=== PATIENT | female | born 1990 | race Caucasian/White ===

== ENCOUNTER 2016-09-22 01:50 | Emergency (ER) | payer BC ==
[~2016-09-22] VITALS: Ht 162.6 cm; Wt 64.5 kg
[~2016-09-22 01:50] MED LIST: BCPILLS PO; DRV100 PO
[2016-09-22 01:54] VITALS: TEMP 36.6; Ht 162.6 cm; Wt 64.5 kg
[2016-09-22] MEDS ORDERED: ONDANSETRON INJ 2 MG/ML 2 ML VIAL IV STA (02:05)
[2016-09-22] MEDS ORDERED: SODIUM CHLORIDE 0.9% 1000ML 1,000 ML IV STA (02:05)
[2016-09-22] MEDS ORDERED: MoRPHine SULFATE 10 MG/ML CARP/VIAL IV STA (02:05)
[2016-09-22 02:35] LABS: URINE BILIRUBIN NEG (NEG); URINE COLOR YELLOW; URINE NITRITE NEG (NEG); URINE SPECIFIC GRAVITY 1.026 (1.000-1.030); UROBILINOGEN NEG (NEG); ZZUR CULT IF INDIC CLEAN CATCH NO
[2016-09-22 02:36] LABS: MANUAL MICROSCOPIC REQUIRED? NO; REVIEW REQ? NO
[2016-09-22 02:44] LABS: HEMATOCRIT 39.1 % (37-47); MEAN CELL VOLUME 89.9 fL (80-100); MEAN CORPUSCULAR HEMOGLOBIN 30.6 pg (25-34); MEAN PLATELET VOLUME 11.3 fL (7.4-10.4); PLATELET COUNT 257 K/uL (130-400); RED BLOOD COUNT 4.35 M/uL (4.2-5.4); WHITE BLOOD COUNT 7.87 K/uL (4.8-10.8)
[2016-09-22 02:56] LABS: BUN/CREATININE RATIO 14.8 (10-20); CALCIUM 8.7 mg/dl (8.5-10.1); CREATININE 0.77 mg/dl (0.60-1.20); POTASSIUM 3.6 mmol/L (3.5-5.1)
[2016-09-22] MEDS ORDERED: KETOROLAC TROMETHAMINE 30 MG/ML VIAL IV STA (03:18)
--- NOTE | 2016-09-22 03:30 | EMERGENCY ROOM VISIT NOTE ---
History First contact with patient: 01:56 Chief Complaint: PELVIC PAIN Stated Complaint: PELVIC PAIN History of Present Illness The patient is a 26 year old female who presents to the Emergency Room with complaints of severe right pelvic pain. The patient states that she had a sudden onset of pain in her right groin approximately 45 minutes ago. She took 2 Advil without relief. She rates her discomfort a 10/10. She states that the pain has been worsening over the past one hour. Her last menstrual period was a few weeks ago. She does not take control pills. She does report a history of ovarian cysts. The patient denies any abnormal vaginal bleeding or discharge. She denies nausea/vomiting. She denies any urinary symptoms. Review of Systems A complete 10 point review of systems was reviewed with the patient with pertinent positives and negatives as per history of present illness. All else were negative. Social History Smoking Status: Never Smoker Current/Historical Medications Scheduled Multivitamin (Multivitamin), 1 TAB PO DAILY Scheduled PRN Hydrocodone/Acetaminophen 5MG/325MG ([place] 5MG/325MG), 1 TABLET PO Q4H PRN for Pain Physical Exam Vital Signs Date Time Temp Pulse Resp B/P (MAP) Pulse Ox O2 Delivery O2 Flow Rate FiO2 09/22/16 03:16 67 18 126/81 99 Room Air 09/22/16 01:54 36.6 115 20 119/76 95 Room Air Physical Exam VITALS: Vitals are noted on the nurse's note and reviewed by myself. Vital signs stable. GENERAL: This is a 26-year-old female, very uncomfortable appearing, well- developed well-nourished. HEART: Regular rate and rhythm without murmurs gallops or rubs. LUNGS: Clear to auscultation bilaterally without wheezes, rales or rhonchi. ABDOMEN: Positive bowel sounds x 4. Soft, nondistended. There is moderate tenderness to palpation in the right lower quadrant. No guarding or rebound tenderness. NEURO: Patient was alert and oriented to person place and time. Medical Decision & Procedures ER Provider Diagnostic Interpretation: US PELVIC/ENDOVAG: Assuming negative test. Endometrium is 1.2 cm thickness. Junctional zone is within normal limits. Mild fluid in the cervix. Mild free pelvic fluid. Left ovary demonstrates normal small follicles and flow. Hypoechoic structure noted measuring 8 mm length which is nonvascular and may be a small hemorrhagic cyst or rupturing follicle. The right ovary measures 5.2 x 5.6 x 3.8 cm and demonstrates a cyst heterogeneous mass measuring 4.4 x 3.5 cm which is nonvascular and may also represent a complex or hemorrhagic cyst. Differential considerations include endometrioma. There is vascular flow in the surrounding right ovarian tissue. However, given size of lesion, patient is at increased risk for torsion. There is a small amount of free fluid is seen adjacent to the ovary. Radiologist: Romaine Mojica MD Laboratory Results 09/22/16 02:20 Red Blood Count 4.35, Mean Corpuscular Volume 89.9, Mean Corpuscular Hemoglobin 30.6, Mean Corpuscular Hemoglobin Concent 34.0, Mean Platelet Volume 11.3 09/22/16 02:20 Test 09/22/16 02:15 09/22/16 02:20 Urine Color YELLOW Urine Appearance ERROR (CLEAR) Urine pH 5.0 (4.5-7.5) Urine Specific [place] 1.026 (1.000-1.030) Urine Protein NEG (NEG) Urine Glucose (UA) NEG (NEG) Urine Ketones TRACE (NEG) Urine Occult Blood NEG (NEG) Urine Nitrite NEG (NEG) Urine Bilirubin NEG (NEG) Urine Urobilinogen NEG (NEG) Urine Leukocyte Esterase NEG (NEG) Urine Test NEG (NEG) White Blood Count 7.87 K/uL (4.8-10.8) Red Blood Count 4.35 M/uL (4.2-5.4) Hemoglobin 13.3 g/dL (12.0-16.0) Hematocrit 39.1 % (37-47) Mean Corpuscular Volume 89.9 fL (80-100) Mean Corpuscular Hemoglobin 30.6 pg (25-34) Mean Corpuscular Hemoglobin Concent 34.0 g/dl (32-36) Platelet Count 257 K/uL (130-400) Mean Platelet Volume 11.3 fL (7.4-10.4) RDW Standard Deviation 43.0 fL (36.4-46.3) RDW Coefficient of Variation 13.0 % (11.5-14.5) Neutrophils % (Manual) 30.1 % Lymphocytes % (Manual) 38.9 % Variant Lymphocytes % (manual) 17.7 % Monocytes % (Manual) 7.1 % Eosinophils % (Manual) 5.3 % Basophils % (Manual) 0.9 % Neutrophils # (Manual) 2.37 K/uL (1.4-6.5) Total Absolute Neutrophils 2.37 K/uL (1.4-6.5) Lymphocytes # (Manual) 3.06 K/uL (1.2-3.4) Absolute Variant Lymphocytes 1.39 K/uL Total Absolute Lymphocytes 4.45 K/uL (1.2-3.4) Monocytes # (Manual) 0.56 K/uL (0.11-0.59) Eosinophils # (Manual) 0.42 K/uL (0-0.5) Basophils # (Manual) 0.07 K/uL (0-0.2) Anion Gap 7.0 mmol/L (3-11) Est Creatinine Clear Calc Drug Dose 94.8 ml/min Estimated GFR () 122.6 Estimated GFR (Non- 105.8 BUN/Creatinine Ratio 14.8 (10-20) Calcium Level 8.7 mg/dl (8.5-10.1) Medications Administered Medications (Trade) Dose Ordered Sig/Jes Route Start Time Stop Time Status Last Admin Dose Admin Sodium Chloride 1,000 ml @ 999 mls/hr Q1H1M STAT IV 09/22/16 02:05 09/22/16 03:05 DC 09/22/16 02:16 999 MLS/HR Morphine Sulfate (MoRPHine SULFATE INJ) 6 mg NOW STAT IV 09/22/16 02:05 09/22/16 02:07 DC 09/22/16 02:17 5 MG Ondansetron HCl (Zofran Inj) 4 mg NOW STAT IV 09/22/16 02:05 09/22/16 02:07 DC 09/22/16 02:16 4 MG Ketorolac Tromethamine (Toradol Inj) 30 mg NOW STAT IV 09/22/16 03:18 09/22/16 03:19 DC 09/22/16 03:22 30 MG ED Course The patient was evaluated as above. Labs were drawn and IV access was obtained. Patient was medicated with 6 mg morphine IV and 4 mg Zofran IV. She was hydrated with 1 L normal saline solution Pelvic ultrasound was performed and read by radiology as above. Patient was having increasing pain, but states she did not tolerate the morphine well. She was given 30 mg Toradol IV. Patient was reevaluated and was feeling much better. Repeat abdominal exam showed minimal tenderness. Case was discussed with Dr. Herrera at [facility]. He recommended follow- up in the office next week. Discharge instructions were reviewed with the patient. The patient verbalized understanding of my assessment and treatment plan and was discharged home in good condition. Medical Decision Differential diagnosis includes ovarian cyst, ovarian torsion, UTI, pelvic inflammatory disease, appendicitis, colitis, among others. The patient is a 26-year-old female who presents today complaining of a sudden onset of right lower quadrant pain. Labs revealed no leukocytosis, anemia or concerning electrolyte abnormalities. Urinalysis was not suggestive of infection. Urine was negative. Pelvic ultrasound showed a large right ovarian cyst/mass and the radiologist did comment on increased risk for torsion. The patient felt much better after receiving pain medication and I do not feel that she is experiencing torsion now. There was blood flow on the ultrasound. There was some free fluid in the pelvis and may represent a recently ruptured cyst. Case was discussed with on-call [facility], who felt the patient could follow-up in the office. Conservative measures were discussed with the patient and she was encouraged to return here if she has worsening pain , vomiting or any other new/concerning symptoms. She was given a short course of [place] to be taken as needed for more severe pain. Based on the patient's presentation and work up, I feel the patient is stable for outpatient treatment. The patient was educated to return to the emergency department for any worsening of their current condition or new/concerning symptoms. She will follow up with [facility]. [place] Drug Monitoring Program Search Results: patient reviewed within database, no issues identified Medication Reconcilliation Current Medication List: was personally reviewed by pr Blood Pressure Screening Patient's blood pressure: Normal blood pressure Impression Primary Impression: Ovarian cyst Departure Information Dispostion Home / Self-Care Condition GOOD Prescriptions Hydrocodone/Acetaminophen 5MG/325MG ([place] 5MG/325MG) Tab 1 TABLET PO Q4H Y for Pain, #10 TAB For Initial Treatment Prov: Ana María Horvath .DAVID 09/22/16 Referrals No Doctor, Assigned (PCP) Saleem Herrera MD Patient Instructions My [facility] Additional Instructions You have been prescribed [place] to be used for pain control. Take 1-2 tablets every 4-6 hours as needed for pain. This is a narcotic medication. You cannot drive or consume alcohol while on this medicine. This medicine should only be used for pain that cannot be controlled with [id number] pain medicines. For pain control, you can use the following [id number] medicines (if >12 yo): - Regular strength (325mg/tab) Tylenol (acetaminophen) 2 tabs every 4-6 hours as needed. Do not exceed 12 tablets in a 24 hour period. Avoid taking more than 4 grams (4000 mg) of Tylenol per day. This includes any other sources of acetaminophen you may take on a regular basis. - Regular strength (200 mg/tab) Advil (ibuprofen) 3-4 tabs every 6 hours as needed. Do not exceed a dose of 3200 mg per day. Call [facility] to schedule a follow-up appointment sometime next week. Return to the emergency department with significantly worsening pain, vomiting, lightheadedness, passing out, or any other new/concerning symptoms. Problem Qualifiers Primary Impression: Ovarian cyst Laterality: right Qualified Codes: N83.201 - Unspecified ovarian cyst, right side
[2016-09-22 04:07] LABS: BASO ABS # 0.07 K/uL (0-0.2); BASOPHIL % 0.9 %; COMPLETE YES; EOSINOPHIL % 5.3 %; LYMPH ABS # 3.06 K/uL (1.2-3.4); LYMPHOCYTE % 38.9 %; NEUTROPHILS % 30.1 %; VARIANT LYM ABS # 1.39 K/uL; VARIANT LYMPHOCYTE % 17.7 %
[2016-09-22] MEDS ORDERED: MULT-506 PO (04:35)
[2016-09-22] MEDS ORDERED: HYDR-5688 PO (05:01)
[2016-09-22 05:11] VITALS: BP 112/62; PULSE 55; O2SAT 100
--- NOTE | 2016-09-22 07:12 | DIAGNOSTIC IMAGING REPORT ---
ULTRASOUND OF THE PELVIS CLINICAL HISTORY: Right pelvic pain. COMPARISON STUDY: Pelvic CT dated 09/16/2008. TECHNIQUE: Real-time, grayscale, and color flow sonography of the pelvis is performed both transabdominally and endovaginally. Images are reviewed in the transverse and longitudinal planes. FINDINGS: Uterus: The uterus is normal in size and echotexture, measuring 7.3 x 3.4 x 4.7 cm. Trace fluid is noted within the endocervical canal. Endometrium: The endometrium is normal in appearance, and the endometrial stripe is top normal in thickness measuring up to 1.1 cm. Ovaries: The ovaries are normal in size and morphology. The right ovary measures 5.6 x 3.8 x 5.2 cm and the left ovary measures 2.7 x 2.2 x 2.2 cm. There are numerous bilateral ovarian follicles. A complex/hyperechoic cyst is noted in the right ovary and measures up to 4.4 cm. Normal Doppler waveforms are shown within both ovaries. Pelvis: There is a small volume of free fluid in the cul-de-sac. No concerning adnexal lesion is seen. IMPRESSION: 1. There is a 4.4 cm complex cyst in the right ovary. This likely represents a hemorrhagic cyst. An endometrioma is considered less likely but is the top differential consideration. Precautionary follow-up ultrasound in 2-3 menstrual cycles is recommended to document resolution. 2. There is a small volume of nonspecific free fluid in the cul-de-sac, likely within physiologic limits. 3. Normal Doppler flow is present within both ovaries. There is no sonographic evidence of ovarian torsion at the time of examination. Electronically signed by: Ronald Sung M.D. 09/22/2016 7:11 AM Dictated Date/Time: 09/22/2016 7:08 AM
== END 2016-09-22 05:13 | disposition home or self-care (01) ==
LOC: C.EDB 01:51 → C.EDA 05:13
DX: N83.201 Unspecified ovarian cyst, right side (principal)

== ENCOUNTER → 2016-12-04 | Outpatient (CLI) | payer BC ==
[~2016-12-04] MED LIST changes: -BCPILLS PO; -DRV100 PO; +HYDR-5688 PO; +MULT-506 PO
== END | disposition home or self-care (01) ==
LOC: C.PAPS 09:33
PROVIDERS: ATTEND Physician Assistant
DX: Z01.419 Encounter for gynecological examination (general) (routine) without abnormal findings (principal)

== ENCOUNTER 2023-07-16 15:38 | Observation (INO) ==
--- NOTE | 2023-07-16 15:45 | Emergency Department Note ---
Impression & Plan Chest pain during , Cholecystitis, Transaminitis ED Provider Note NAME: AMADO BOLIVAR AGE: 32 SEX: F : 1990 ARRIVES VIA: Walk-In INFORMANT: Patient, ED PROVIDER(S): oMrris Yi MD CHIEF COMPLAINT: Chest and abdominal pain, nausea MEDICAL DECISION MAKING: Patient presented due to concern for upper abdominal and chest pain and the patient is significantly uncomfortable and was found not to be in labor so additional advanced her workup was initiated in the emergency department. The patient already did have an IV established and blood work was obtained which was pending. Additional blood work was added along with a CT of the chest angiography and CT of the abdomen and pelvis. Patient and the patient's were concerned about radiation was for the child. I did discuss that there are theoretical risks but may be less so in the third trimester. I did tell them that I was concerned about the patient and that the patient is in significant discomfort and pain which would be atypical for dyspepsia. They are comfortable with proceeding forward. The patient was ordered IV Pepcid but declined any nausea medication. The patient did have a CT of the chest performed which was unremarkable. CT of the abdomen pelvis did show concern for gallbladder wall thickening and inflammatory change. I did speak with the reading radiologist Dr. Mcgee who stated the patient could have a short segment dissection of the SMA. Given the patient did have symptoms in the upper abdomen with radiation toward the back this could be referred pain from that. I did discuss this at length with the patient the patient's again about potential needing additional imaging study CT with contrast in order to evaluate this vessel. In order to evaluate this this was the recommendation of radiology. After further discussion with the patient's and the patient's they are comfortable with proceeding. Patient also did have a gallbladder ultrasound ordered in addition to limited OB ultrasound to evaluate the placenta in order to rule out abruption. Patient did have 1 episode of vomiting after her initial CAT scan but declined any additional nausea medication but did receive IV Protonix. The patient's blood work showed a white count of 11 with a normal hemoglobin and platelet count. The patient's kidney function was unremarkable. The patient does have mild transaminitis with an AST and ALT of 66 and 113 with an alk phos of 125. Urinalysis was negative. Right upper quadrant ultrasound showed equivocal cholecystitis. I did speak with on-call general surgery Harjinder Clifton PA-C did evaluate the patient and in consultation with Dr. Peguero. They stated that no something that they would perform surgery but recommended conservative management until that would consider possible induction and elective cholecystectomy unless things worsened. I did discuss this with the on-call MACHINE SPECIALIST physician Dr. Nair and the patient will be admitted under observation and with MACHINE SPECIALIST under surgical consultation. Gallbladder ultrasound does show the cholelithiasis with mild gallbladder wall thickening gallbladder distention and trace pericholecystic fluid the angiography of the abdomen was described as the subtle linear density within the proximal SMA is likely artifactual. There is still cholelithiasis with mild gallbladder distention and pericholecystic infiltration. Ultrasound will be limited does not show any evidence of placental abruption. Discussion w/ other healthcare providers: Dr. Nobles with MACHINE SPECIALIST Dr. Mcgee with radiology Harjinder Clifton PA-C and Dr. Peguero with general surgery Prior /Outside records reviewed: None Differential diagnosis: Cardiac ischemia, aortic dissection, pulmonary embolism, pneumothorax, pneumonia, pericarditis, myocarditis, GERD, cholecystitis, pancreatitis, musculoskeletal, as well as other pathologies were considered. Diagnostics, as interpreted by me: ECG: Normal sinus rhythm, rate of 68, normal intervals, normal axis T wave version lead III noncontiguous leads no ST elevations. Cardiac monitoring: An order was placed for continuous cardiac monitoring. The monitor shows a rate of 75 with sinus rhythm. Patient was placed on pulse oximetry Medical decision rules: Heart score, Wells score Imaging studies: I informally interpreted the patient's CT angiography of the chest which does not show obvious pneumonia or pneumothorax with formal report to follow. HPI: Patient presents due to concern for upper abdominal and chest pain that began shortly after eating. Patient had presented here and there was concern that the patient may be in labor so the patient did go to L&D. The patient was assessed by L&D and sent back down to the emergency department for further evaluation. Patient reportedly has had persistent pain since the time that it began. It is constant located in the upper abdomen and radiating into the upper chest. Patient is 37 weeks and is a G1, P0. The patient denies any vaginal bleeding or discharge no leakage of fluid. I did speak with the on-call MACHINE SPECIALIST Dr. Pappas to evaluate the patient states that the patient is not in active labor with good heart rate and movement. Patient denies any leg swelling or calf pain. 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 The patient denies any history of DVT or PE. No recent surgeries procedures or hospitalizations. Patient denies any cough or fever. Patient states that she has had similar episodes in the past but they have resolved with this 1 has been constant ever since it began. Patient states that the pain is burning in nature and does radiate to her back. PAST MEDICAL HISTORY: See Below PAST SURGICAL HISTORY: See Below SOCIAL HISTORY: See Below HOME MEDICATIONS: See Below ALLERGIES: See Below VITALS: See Below PHYSICAL EXAMINATION: GENERAL: Moderate distress and uncomfortable in appearance. Writhing in the bed, primarily responds with single words or shaking of the head or nodding as opposed to speaking in sentences. EYE EXAM: Normal conjunctiva. PERRL, no anisocoria and EOM's grossly intact w/o pain. OROPHARYNX: Moist mucus membranes, grossly normal dentition. NECK: Trachea midline, no stridor. Supple, no nuchal rigidity, no adenopathy, non-tender. No signs of meningismus. FROM of the neck with good chin to chest and neck extension. LUNGS: Clear to auscultation. Normal chest wall mechanics. HEART: NSR, no MRG. ABDOMEN: Upper abdominal pain diffuse, no significant lower abdominal pain, gravid abdomen, no rebound or guarding. BACK: No CVA TTP. SKIN: No rashes and no bruising. UPPER EXTREMITIES: Upper extremities are grossly normal. LOWER EXTREMITIES: Grossly normal, no edema. Negative Homans' sign bilaterally NEURO EXAM: A&O x3, cranial nerves II-XII grossly intact, normal speech, moves all 4 extremities. 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 Tinnitus, bilateral Menorrhagia Dysmenorrhea Suspected 2019 novel coronavirus infection (Acute) Medical History Mild tricuspid regurgitation Varicella vaccination Family history of ovarian cyst History of coagulation defect Factor 5 Leiden mutation, heterozygous Surgical History S/P wisdom tooth extraction Family History Grandmother (Maternal) Factor 5 Leiden mutation, heterozygous Breast cancer Grandmother (Paternal) Clotting disorder Father Hypertension Liver disease Dyslipidemia Aunt Factor 5 Leiden mutation, heterozygous maternal Denies family history of Ovarian cancer Colorectal cancer Social History Smoking Status: Never smoker Do You Dip or Chew Tobacco: No; Hx Alcohol Use: No Hx Substance Use: No Preferred Language: German Communication Ability: Effective Data Collection Associate Required: No Beliefs That Will Affect Care: None marital status: marital status details: Dereje Mercedes(34) [phone] Current Living Situation: Spouse Current Living Situation Comment: lives with spouse, cat-spouse changing litter current occupational status: employed 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 Feels Safe at Home: Yes Allergies Allergies Allergy/AdvReac Type Severity Reaction Status Date / Time COVID-19 vacc, bv (Orig, Allergy Unknown faint Verified 07/16/23 16:18 Omicron BA.4/5) (Pfizer) [From Pfizer COVID Bival(12y up)(PF)] miconazole [From Monistat 7] AdvReac Severe internal Verified 07/16/23 16:18 vag pain, swelling Home Meds Home Medications Medication Instructions Recorded Confirmed vits,calcium 21-iron fum 1 tab PO UD 07/16/23 07/16/23 14 mg iron-folic acid 400 mcg tablet ( Complete) Results & Data (ED) Vital Signs Vital Signs - 24 hr 07/16/23 19:44 07/16/23 20:01 07/16/23 20:29 Pulse Rate 66 76 77 Pulse Rate from SpO2 Sensor 67 77 Respiratory Rate 20 17 Blood Pressure 134/72 117/74 Blood Pressure Mean 92 88 Pulse Oximetry 99 98 07/16/23 20:30 07/16/23 21:30 07/16/23 22:00 Pulse Rate 66 63 65 Pulse Rate from SpO2 Sensor 65 63 64 Respiratory Rate 20 14 14 Blood Pressure 126/73 122/73 129/74 Blood Pressure Mean 90 89 92 Pulse Oximetry 99 96 97 07/16/23 22:30 07/16/23 23:00 Pulse Rate 62 67 Pulse Rate from SpO2 Sensor 62 68 Respiratory Rate 18 14 Blood Pressure 120/70 132/74 Blood Pressure Mean 86 93 Pulse Oximetry 97 99 Home Medications Current Medication List: was personally reviewed by me Laboratory Data Attestation: I reviewed the patient's lab results. 07/17/23 06:07 07/17/23 06:07 Administered Medications Discontinued Medications Famotidine (Pepcid 20mg Iv Push) 20 mg in 5 mls @ 2.5 mls/min IV NOW STA Stop: 07/16/23 15:52 Last Admin: 07/16/23 16:04 Dose: 2.5 mls/min Documented By: Pantoprazole Sodium 40 mg/ (Syringe) 10 mls @ 5 mls/min IV NOW ONE Stop: 07/16/23 17:07 Last Admin: 07/16/23 19:39 Dose: 5 mls/min [place]ed [place] [facility] [place]per[place] Sod/Tazobactam Sod (Zosyn) 4.5 gm in 100 mls @ 200 mls/hr IV NOW ONE Stop: 07/16/23 20:14 Last Infusion: 07/16/23 20:47 Dose: Infused [place]ed [place] [facility] [place] Admin: 07/16/23 19:58 Dose: 200 mls/hr Documented By: [facility] [place] Dextrose/Lactated Ringer's (D5w And Lactated Ringers) 1,000 mls @ 125 mls/hr IV .Q8H [facility] Stop: 08/16/23 00:44 Last Infusion: 07/17/23 12:00 Dose: Infused Documented By: Infusion: 07/17/23 08:36 Dose: 125 mls/hr Documented By: Infusion: 07/17/23 04:30 Dose: 0 mls/hr Documented By: Admin: 07/17/23 01:05 Dose: 125 mls/hr Documented By: ELICEO Piperacillin Sod/Tazobactam (Sod 4.5 gm/ Dextrose) 100 mls @ 25 mls/hr IV Q8H [facility]; Protocol Stop: 07/21/23 03:59 Last Infusion: 07/17/23 08:36 Dose: Infused Documented By: Admin: 07/17/23 04:30 Dose: 25 mls/hr Documented By: JOSE Ioversol (Optiray 320 125ml) 120 ml IV ONCE ONE Stop: 07/16/23 16:25 Last Admin: 07/16/23 16:25 Dose: 120 ml Documented By: KLEVER Ioversol (Optiray 320 125ml) 120 ml IV ONCE ONE Stop: 07/16/23 19:03 Last Admin: 07/16/23 19:06 Dose: 120 ml Documented By: NEENA Ondansetron HCl (Ondansetron Inj 2 Mg/Ml 2 Ml Vial) 4 mg IV NOW STA Stop: 07/16/23 17:06 Last Admin: 07/16/23 19:05 Dose: Not Given Documented By: MR Cardoza Multivit/Wood Casket Assembler/Iron/Folic Ac ( Vitamin 1 Tab) 1 tab PO DAILY@0800 [facility] Stop: 08/16/23 07:59 Last Admin: 07/17/23 08:07 Dose: Not Given Documented By: JAMAL Imaging Data Radiologist's Impression: Abdomen/Pelvis CT 07/16/23 15:51 CT OF THE ABDOMEN AND PELVIS WITH CONTRAST CLINICAL HISTORY: Chest pain moving to back and upper abdominal pain, 37 weeks . COMPARISON STUDY: CT of the abdomen and pelvis September 16, 2008. OB ultrasound March 19, 2023. TECHNIQUE: Following IV administration of 120 mL of Optiray, axial images of the abdomen and pelvis were obtained from the lung bases to the proximal femurs. Images were reviewed in the axial, sagittal, and coronal planes. IV contrast was administered without complication. Automated exposure control was utilized for the study. A dose lowering technique was utilized adhering to the principles of ALARA. FINDINGS: No pneumatosis, free air or portal venous gas is present. Liver, spleen, adrenal glands, kidneys and pancreas are normal. There is no biliary or pancreatic ductal dilatation. The gallbladder is mildly distended. There is mild pericholecystic stranding. A 3 mm radiodensity within the gallbladder is present. Intrauterine gestation is noted. Presentation is cephalic. Heterogeneity of the placenta is likely due to placental lakes. There is no free fluid. Caliber and wall thickness of small and large bowel are normal. The appendix is not definitively identified but there is no inflammation adjacent to the cecum/ileocecal valve. An apparent linear filling defect within the proximal superior mesenteric artery on image 98 of 377 is probably artifactual. No fluid collections are present. There is no lymphadenopathy. IMPRESSION: 1. Small gallstone within the gallbladder with mild gallbladder distention and pericholecystic stranding. The findings raise the possibility of acute cholecystitis. Right upper quadrant ultrasound could be obtained for further evaluation. 2. Apparent linear filling defect within the proximal superior mesenteric artery. This is likely artifactual however a short segment dissection cannot be excluded. If clinically indicated, a CTA of the abdomen could be obtained. 3. No bowel obstruction. No bowel wall thickening. Nonvisualization of the appendix but no inflammation adjacent to the cecum. 4. Intrauterine gestation. Cephalic presentation. Heterogeneity of the placenta, likely related to venous lakes. Placental abruption is considered less likely however if clinical suspicion, OB ultrasound is recommended. ACT 112: Negative or not required by law. Electronically signed by: Fermin Mcgee M.D. 07/16/2023 5:14 PM Chest CTA 07/16/23 15:51 CT ANGIOGRAPHY OF THE CHEST, PULMONARY EMBOLUS PROTOCOL CLINICAL HISTORY: Chest pain moving to back and upper abdominal pain, 37 weeks . COMPARISON STUDY: Chest radiograph June 20, 2019. TECHNIQUE: Following IV administration of 120 mL of Optiray, helical axial images of the chest were obtained utilizing the pulmonary embolus protocol. Maximal intensity projections and sagittal and coronal reformats were viewed on an independent 3D workstation. IV contrast was administered without complication. Automated exposure control was utilized for the study. A dose lowering technique was utilized adhering to the principles of ALARA. CT DOSE: 1650.91 mGy.cm FINDINGS: No pulmonary emboli are identified. There is no thoracic aortic dissection. Size of the heart is normal. There is no pericardial effusion. No enlarged axillary, mediastinal or hilar lymph nodes are present. There are no pulmonary nodules. No consolidation is present. There is no pneumothorax or pleural effusion. No fractures within the bony thorax are present. Abdomen and pelvis CT will be reported separately. IMPRESSION: 1. No pulmonary emboli identified. 2. No acute intrathoracic findings. ACT 112: Negative or not required by law. Electronically signed by: Fermin Mcgee M.D. 07/16/2023 4:31 PM Gallbladder Ultrasound 07/16/23 17:02 US gallbladder CLINICAL HISTORY: Abdominal pain. Evaluate for cholecystitis. COMPARISON STUDY: CT of the abdomen and pelvis performed earlier today. FINDINGS: Liver is sonographically normal. There is no biliary ductal dilatation. The pancreas is unremarkable although the tail is obscured by bowel gas. Multiple gallstones within the gallbladder are noted. Mild gallbladder distention. There is mild gallbladder wall thickening and trace pericholecystic fluid. No sonographic Aj sign was elicited. There is no right hydronephrosis. IMPRESSION: Cholelithiasis with mild gallbladder wall thickening, gallbladder distention and trace pericholecystic fluid. However, no sonographic Aj sign. The findings are equivocal for acute cholecystitis. ACT 112: Negative or not required by law. Electronically signed by: Fermin Mcgee M.D. 07/16/2023 6:53 PM Abdomen CTA 07/16/23 17:30 CT ANGIOGRAPHY OF THE ABDOMEN CLINICAL HISTORY: Abdominal pain. . Possible dissection on the venous phase CT. r/o SMA dissection COMPARISON STUDY: CT of the abdomen and pelvis performed earlier today. TECHNIQUE: Helical axial images of the abdomen and pelvis were obtained during arterial phase following intravenous injection of 120 cc of Optiray 320 IV. Sagittal and coronal reconstructions were viewed as well as maximal intensity projections on an independent 3-D workstation. Automated exposure control was utilized for the study. A dose lowering technique was utilized adhering to the principles of ALARA. FINDINGS: The caliber of the abdominal aorta is normal. Vascular opacification is somewhat suboptimal. Celiac axis is patent with no dissection. There is no definite dissection within the superior mesenteric artery. A subtle linear density within the proximal SMA is likely artifactual. The distal superior mesenteric artery is patent. The inferior mesenteric artery is patent as are the bilateral renal arteries. Arterial phase images of the liver, spleen, adrenal glands, kidneys and pancreas are unremarkable. Excreted contrast within the collecting systems from prior contrast enhanced CT is noted. There is no hydronephrosis. Intrauterine gestation is partially imaged. Enhancing foci within the placenta likely reflect placental lakes. Caliber and wall thickness of visualized small and large bowel are normal. A gallstone within the gallbladder is noted. As before, the gallbladder is mildly distended with moderate pericholecystic stranding. Visualized lung bases are unremarkable. IMPRESSION: 1. No definite SMA dissection. A subtle linear density within the proximal SMA is likely artifactual. 2. Cholelithiasis with mild gallbladder distention and pericholecystic infiltration. Acute cholecystitis cannot be excluded. 3. Partially visualized intrauterine gestation. ACT 112: Negative or not required by law. Electronically signed by: Fermin Mcgee M.D. 07/16/2023 7:24 PM Obstetrics Ultrasound 07/16/23 17:42 US OB limited CLINICAL HISTORY: Abdominal pain. r/o abruption. COMPARISON STUDY: CT of the abdomen and pelvis performed earlier today and OB ultrasound March 19, 2023. TECHNIQUE: Transabdominal sonography of the pelvis was performed. FINDINGS: Single viable intrauterine gestation is noted. heart rate is normal at 135 bpm. Presentation is cephalic. No evidence for placental abruption. Several placental lakes are incidentally noted. Please note that a dedicated anatomical survey was not performed. Femur length measures 7.23 cm which corresponds to an estimated gestational age of 37 weeks and 0 days. Biparietal diameter measures 9.18 cm which corresponds to an estimated gestational age of 37 weeks and 2 days. The right ovary was not visualized. Left ovary is unremarkable. Subjectively, the amount of amniotic fluid appears normal. IMPRESSION: 1. Single viable intrauterine gestation. 2. Normal heart rate. 3. No sonographic evidence for placental abruption. ACT 112: Negative or not required by law. Electronically signed by: Fermin Mcgee M.D. 07/16/2023 6:55 PM Discharge Plan Visit Data Chief Complaint: Chest Pain Stated Complaint: CHEST PAIN - 37 WEEKS ED Provider: Morris Yi Discharge Problem: Chest pain during , Cholecystitis, Transaminitis Patient Disposition: Admitted As Inpatient Discharge Instructions Interventions: ED Discharge Assessment Last Done: 07/17/23 00:32
[2023-07-16] MEDS: FAMOTIDINE 20MG IV PUSH 20 MG/5 ML SYR IV STA (16:04)
[2023-07-16] MEDS: OPTIRAY 320 125ml IV ONE ×2 (16:25→19:06)
--- NOTE | 2023-07-16 16:34 | CT Scan Report ---
CT ANGIOGRAPHY OF THE CHEST, PULMONARY EMBOLUS PROTOCOL CLINICAL HISTORY: Chest pain moving to back and upper abdominal pain, 37 weeks . COMPARISON STUDY: Chest radiograph June 20, 2019. TECHNIQUE: Following IV administration of 120 mL of Optiray, helical axial images of the chest were o btained utilizing the pulmonary embolus protocol. Maximal intensity projections and sagittal and cor onal reformats were viewed on an independent 3D workstation. IV contrast was administered without co mplication. Automated exposure control was utilized for the study. A dose lowering technique was ut ilized adhering to the principles of ALARA. CT DOSE: 1650.91 mGy.cm FINDINGS: No pulmonary emboli are identified. There is no thoracic aortic dissection. Size of the he art is normal. There is no pericardial effusion. No enlarged axillary, mediastinal or hilar lymph nod es are present. There are no pulmonary nodules. No consolidation is present. There is no pneumothorax or pleural effusion. No fractures within the bony thorax are present. Abdomen and pelvis CT will be reported separately. IMPRESSION: 1. No pulmonary emboli identified. 2. No acute intrathoracic findings. ACT 112: Negative or not required by law. Electronically signed by: Fermin Mcgee M.D. 07/16/2023 4:31 PM
--- NOTE | 2023-07-16 17:17 | CT Scan Report ---
CT OF THE ABDOMEN AND PELVIS WITH CONTRAST CLINICAL HISTORY: Chest pain moving to back and upper abdominal pain, 37 weeks . COMPARISON STUDY: CT of the abdomen and pelvis September 16, 2008. OB ultrasound March 19, 2023. TECHNIQUE: Following IV administration of 120 mL of Optiray, axial images of the abdomen and pelvis w ere obtained from the lung bases to the proximal femurs. Images were reviewed in the axial, sagittal, and coronal planes. IV contrast was administered without complication. Automated exposure control w as utilized for the study. A dose lowering technique was utilized adhering to the principles of ROSEMARIE Ellis. FINDINGS: No pneumatosis, free air or portal venous gas is present. Liver, spleen, adrenal glands, ki dneys and pancreas are normal. There is no biliary or pancreatic ductal dilatation. The gallbladder i s mildly distended. There is mild pericholecystic stranding. A 3 mm radiodensity within the gallbladd er is present. Intrauterine gestation is noted. Presentation is cephalic. Heterogeneity of the placen ta is likely due to placental lakes. There is no free fluid. Caliber and wall thickness of small and large bowel are normal. The appendix is not definitively identified but there is no inflammation anastasiya cent to the cecum/ileocecal valve. An apparent linear filling defect within the proximal superior mes enteric artery on image 98 of 377 is probably artifactual. No fluid collections are present. There is no lymphadenopathy. IMPRESSION: 1. Small gallstone within the gallbladder with mild gallbladder distention and pericholecystic strand ing. The findings raise the possibility of acute cholecystitis. Right upper quadrant ultrasound could be obtained for further evaluation. 2. Apparent linear filling defect within the proximal superior mesenteric artery. This is likely carli factual however a short segment dissection cannot be excluded. If clinically indicated, a CTA of the abdomen could be obtained. 3. No bowel obstruction. No bowel wall thickening. Nonvisualization of the appendix but no inflammati on adjacent to the cecum. 4. Intrauterine gestation. Cephalic presentation. Heterogeneity of the placenta, likely related to ve nous lakes. Placental abruption is considered less likely however if clinical suspicion, OB ultrasoun d is recommended. ACT 112: Negative or not required by law. Electronically signed by: Fermin Mcgee M.D. 07/16/2023 5:14 PM
--- NOTE | 2023-07-16 18:54 | Ultrasound Report ---
US gallbladder CLINICAL HISTORY: Abdominal pain. Evaluate for cholecystitis. COMPARISON STUDY: CT of the abdomen and pelvis performed earlier today. FINDINGS: Liver is sonographically normal. There is no biliary ductal dilatation. The pancreas is unr emarkable although the tail is obscured by bowel gas. Multiple gallstones within the gallbladder are noted. Mild gallbladder distention. There is mild gallbladder wall thickening and trace pericholecyst ic fluid. No sonographic Aj sign was elicited. There is no right hydronephrosis. IMPRESSION: Cholelithiasis with mild gallbladder wall thickening, gallbladder distention and trace p ericholecystic fluid. However, no sonographic Aj sign. The findings are equivocal for acute pita cystitis. ACT 112: Negative or not required by law. Electronically signed by: Fermin Mcgee M.D. 07/16/2023 6:53 PM
--- NOTE | 2023-07-16 18:57 | Ultrasound Report ---
US OB limited CLINICAL HISTORY: Abdominal pain. r/o abruption. COMPARISON STUDY: CT of the abdomen and pelvis performed earlier today and OB ultrasound March 19, 2023. TECHNIQUE: Transabdominal sonography of the pelvis was performed. FINDINGS: Single viable intrauterine gestation is noted. heart rate is normal at 135 bpm. Prese ntation is cephalic. No evidence for placental abruption. Several placental lakes are incidentally no main. Please note that a dedicated anatomical survey was not performed. Femur length measures 7. 23 cm which corresponds to an estimated gestational age of 37 weeks and 0 days. Biparietal diameter m easures 9.18 cm which corresponds to an estimated gestational age of 37 weeks and 2 days. The right o vary was not visualized. Left ovary is unremarkable. Subjectively, the amount of amniotic fluid appea rs normal. IMPRESSION: 1. Single viable intrauterine gestation. 2. Normal heart rate. 3. No sonographic evidence for placental abruption. ACT 112: Negative or not required by law. Electronically signed by: Fermin Mcgee M.D. 07/16/2023 6:55 PM
[2023-07-16] MEDS: ONDANSETRON INJ 2 MG/ML 2 ML VIAL IV STA (19:05)
--- NOTE | 2023-07-16 19:26 | CT Scan Report ---
CT ANGIOGRAPHY OF THE ABDOMEN CLINICAL HISTORY: Abdominal pain. . Possible dissection on the venous phase CT. r/o SMA diss ection COMPARISON STUDY: CT of the abdomen and pelvis performed earlier today. TECHNIQUE: Helical axial images of the abdomen and pelvis were obtained during arterial phase followi ng intravenous injection of 120 cc of Optiray 320 IV. Sagittal and coronal reconstructions were viewe d as well as maximal intensity projections on an independent 3-D workstation. Automated exposure cont rol was utilized for the study. A dose lowering technique was utilized adhering to the principles of ALARA. FINDINGS: The caliber of the abdominal aorta is normal. Vascular opacification is somewhat suboptimal . Celiac axis is patent with no dissection. There is no definite dissection within the superior mesen teric artery. A subtle linear density within the proximal SMA is likely artifactual. The distal super ior mesenteric artery is patent. The inferior mesenteric artery is patent as are the bilateral renal arteries. Arterial phase images of the liver, spleen, adrenal glands, kidneys and pancreas are unrema rkable. Excreted contrast within the collecting systems from prior contrast enhanced CT is noted. The re is no hydronephrosis. Intrauterine gestation is partially imaged. Enhancing foci within the placen ta likely reflect placental lakes. Caliber and wall thickness of visualized small and large bowel are normal. A gallstone within the gallbladder is noted. As before, the gallbladder is mildly distended with moderate pericholecystic stranding. Visualized lung bases are unremarkable. IMPRESSION: 1. No definite SMA dissection. A subtle linear density within the proximal SMA is likely artifactual. 2. Cholelithiasis with mild gallbladder distention and pericholecystic infiltration. Acute cholecysti tis cannot be excluded. 3. Partially visualized intrauterine gestation. ACT 112: Negative or not required by law. Electronically signed by: Fermin Mcgee M.D. 07/16/2023 7:24 PM
[2023-07-16] MEDS: PANTOprazole 40 MG in SYRINGE 0 ML IV ONE (19:39)
[2023-07-16] MEDS: PIPERACILLIN/TAZOBACTAM 4.5 GM/100 ML BAG IV ONE (19:58)
--- NOTE | 2023-07-16 20:08 | Surgery Consultation ---
Date of Consultation July 16, 2023 Assessment & Plan (1) Cholecystitis: I discussed with the treating emergency room physician and recommend the following from surgical perspective The patient does not have any definite evidence of cholecystitis At the present time, cholecystectomy is not advisable, as the patient is 37 weeks gestation. It would be preferable to have the patient deliver her baby and then consider pursuing cholecystectomy at a later time I discussed the case with OB and they are planning on admitting the patient for observation In the interim we will place the patient on antibioticsthe emergency room physician has initiated Zosyn As the patient does have a slight elevation of her alkaline phosphatase and transaminases I feel be prudent to repeat LFTs tomorrow to ensure that they are not rising If there is evidence of rising LFTs additional recommendations will be made on the best course of action regarding the patient's cholecystitis I did advise the patient to avoid fatty foods for the present time I would allow the patient to have clear liquids up until midnight tonight, we will make her n.p.o. after midnight in the event that her LFTs do rise in any procedural intervention would be required Additional recommendations will be made based on her clinical course as it unfolds Supervising Physician Co-Signing Physician Notes pnt d/w ELIZABETH Tate, labs and imaging reviewed, agree with above. 37 week female with epigastric pain, CT and RUQUS with cholelithiasis and possible cholecystitis. Given advanced , would treat conservatively as difficult access laparoscopically. If worsens, consider induction/delviery followed by cholecystectomy. History of Present Illness Reason for Consultation: Cholelithiasis, possible cholecystitis History of Present Illness This is a 32-year-old female who is at 37 weeks gestation who presented to the emergency department secondary to abdominal pain. The patient notes that during her she has had 1-2 episodes of epigastric pain/heartburn that usually self resolves after belching and using the restroom. Earlier today around noon the patient had a pizza for lunch and then developed similar pain to what is described above only in a much more severe nature that did not resolve in his usual fashion and because of this she presented the emergency department. She said that the pain did radiate up into her chest to some degree. She did not have any nausea or vomiting. She did not report any fevers. She denies any prior abdominal surgeries. It is noteworthy to mention that the patient does have a history of factor V Leiden deficiency. The patient notes that this was discovered because the patient's grandmother was diagnosed with with this condition, and the patient inquired about going on control pills in the past which prompted evaluation for this condition. The patient notes that she tested positive for factor V Leiden and therefore was never placed on oral contraceptive pills. She notes that she has never had any issues with blood clots. Because of the above-noted symptomatology she presented to the emergency department where labs and imaging were performed which I independent reviewed. She did have a CT scan of the abdomen pelvis that showed patient had a small gallstone in the gallbladder with mild gallbladder distention and pericholecystic stranding. There is no biliary ductal dilatation but these findings could not exclude cholecystitis. Of note, on this abdominal CT scan the patient had a possible linear filling defect in this superior mesenteric artery. A gallbladder ultrasound was performed which demonstrated gallstones w ith mild gallbladder wall thickening and gallbladder distention with trace pericholecystic fluid, again with the inability to exclude cholecystitis. A CT scan of the chest was performed and no pulmonary emboli were noted. There were no other acute intrathoracic findings. Because of the CT scan findings on the original abdominal CT scan a CT angiogram of the abdomen was performed that showed no definite superior mesenteric artery dissection and the superior mesenteric artery was noted to have a subtle linear density which was felt to be artifactual. An obstetrics ultrasound was performed that showed a single viable intrauterine gestation with normal heart rate. There is no evidence of placental abruption. It is also noteworthy to mention that prior to presenting to the emergency department the patient did present to the obstetrics [facility] as the patient was concerned that she may have been in labor due to the above-noted symptoms. She did have labs performed at this time where CBC revealed white blood cell count was slightly elevated 11.0. Her hemoglobin was normal and her hematocrit was slightly at 35.5. Platelet count was within the normal range. Chemistry profile showed sodium was 135 with a normal potassium. BUN and creatinine were 12 and 0.5. The patient's magnesium was noted to be normal. The patient's bilirubin was normal. Transaminases revealed an AST and ALT of 66 and 113 respectively. Her alkaline phosphatase had a slight elevation at 125. Due to the symptoms that the patient was experiencing was recommended that the patient go to the emergency department as described above. At the time of my interview with the patient she was resting comfortably in bed in no distress. Allergies Allergy/AdvReac Type Severity Reaction Status Date / Time COVID-19 vacc, bv (Orig, Allergy Unknown faint Verified 07/16/23 16:18 Omicron BA.4/5) (Pfizer) [From Pfizer COVID Bival(12y up)(PF)] miconazole [From Monistat 7] AdvReac Severe internal Verified 07/16/23 16:18 vag pain, swelling Home Medications Medication Instructions Recorded Confirmed Type vits,calcium 21-iron fum 1 tab PO UD 07/16/23 07/16/23 History 14 mg iron-folic acid 400 mcg tablet ( Complete) Patient History Medical History Mild tricuspid regurgitation Varicella vaccination Family history of ovarian cyst History of coagulation defect Factor 5 Leiden mutation, heterozygous Surgical History S/P wisdom tooth extraction Family History Grandmother (Maternal) Factor 5 Leiden mutation, heterozygous Breast cancer Grandmother (Paternal) Clotting disorder Father Hypertension Liver disease Dyslipidemia Aunt Factor 5 Leiden mutation, heterozygous maternal Denies family history of Ovarian cancer Colorectal cancer Social History Smoking Status: Never smoker Do You Dip or Chew Tobacco: No; Hx Alcohol Use: No Hx Substance Use: No Preferred Language: Maltese marital status: marital status details: Dereje Mercedes([phone] Current Living Situation: Spouse Current Living Situation Comment: lives with spouse, cat-spouse changing litter current occupational status: employed 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 Feels Safe at Home: Yes Review of Systems Review of Systems: All systems reviewed & are unremarkable except as noted in HPI & below Constitutional: no fever and no chills Cardiovascular: + chest pain (Radiating from abdomen) Gastrointestinal: as per Subjective / HPI Genitourinary: no dysuria Physical Exam Constitutional: WD/WN, vitals as above Eyes: + anicteric sclerae ENMT: Ears: no hearing impairment and no external ear abnormality No sublingual jaundice noted Neck: trachea midline Respiratory: normal respiratory effort, lungs clear to auscultation Cardiovascular: Rate/Rhythm: regular rate and regular rhythm Gastrointestinal (Abdomen): The patient's abdomen was examinedshe had an enlarged abdomen consistent with 37 weeks gestation. At the time of my exam the patient's abdomen was nondistended and nonrigid. Bowel sounds are present. There is no rebound tenderness or guarding. At the time of my exam the patient had minimal to no pain in the epigastric areas as well as the right upper quadrant. Musculoskeletal: No calf tenderness Skin: no rashes Neurologic: moves all extremities Psychiatric: A+Ox3, euthymic affect Results & Data Vital Signs (Past 12 Hours) Vital Signs Temp Pulse Resp BP Pulse Ox O2 Del Method 07/16/23 19:44 66 20 134/72 99 07/16/23 17:01 87 16 149/96 H 99 07/16/23 16:37 79 07/16/23 16:31 79 19 114/79 100 07/16/23 15:40 36.0 C L 80 20 135/82 99 Room Air PG Care Time/CCT Total # of Minutes Spent Total Time Spent with Patient: Total time spent is greater than 50% in coordination of care (as documented) at patient's floor/unit and/or counseling patient: Coding Level of Care Code 04656 IN/OBS CONSULT LVL 5,80M Diagnoses Cholecystitis K81.9
--- NOTE | 2023-07-16 23:42 | Obstetrical Progress Note ---
Date of Service July 16, 2023 Subjective Patient Is seen and examined She has been in since this afternoon Her work up was negative for PE, MN, normal ECG, Chest CT Normal OB US Abd US with GB stone and ? cholecystitis? She feels much better Pain is much lower, she declined all pain meds She does not need Tylenol either She denies ctxs/ abdominal pain/LOF/VB/ spotting Bbay has ivan very active Kicking on her RUQ and causing discomfort VSS afebrile Bed side US: vertex, single UIP, FHR 140's, multiple movements and breathing see, placenta anterior, appears normal AFV normal G. surgery has seen her recommended IV AB, no surgery for now, keep overnight observation and repeat labs in am, clear diet until MN then NPO Patient understands all and all questions were answered. Results & Data Vital Signs (Past 12 Hours) Vital Signs Temp Pulse Resp BP Pulse Ox O2 Del Method 07/16/23 20:30 66 20 126/73 99 07/16/23 20:29 77 07/16/23 20:01 76 17 117/74 98 07/16/23 19:44 66 20 134/72 99 07/16/23 17:01 87 16 149/96 H 99 07/16/23 16:37 79 07/16/23 16:31 79 19 114/79 100 07/16/23 15:40 36.0 C L 80 20 135/82 99 Room Air
[2023-07-16] MEDS ORDERED: ONDANSETRON INJ 2 MG/ML 2 ML VIAL IV PRN (23:49)
[2023-07-16] MEDS ORDERED: CALCIUM CARBONATE 500 MG CHEWABLE TAB PO PRN (23:49)
[2023-07-16] MEDS ORDERED: ACETAMINOPHEN 325 MG TAB PO PRN (23:49)
[2023-07-17] MEDS: D5W AND LACTATED RINGERS 1,000 ML IV SCH (01:05)
--- NOTE | 2023-07-17 01:06 | Obstetrical Progress Note ---
Date of Service July 17, 2023 Assessment & Plan Admission and Anticipated Discharge Date Admission Date: July 16, 2023 Subjective Patient is now in L&D and monitor She has no complaints, no CP/SOB/ Abdominal pain/ ctxs/ LOF/VB +FM's FHR categ I toco; mild small irregular contractions q6-7 min, patient does not feel them VE; cervix closed, %30, -3, posterior, no blood in vagina Abnormal coags, elevated PT/ INR( 1.6) , PTT, slightly lower fibrinogen ( above 150) No s/s of PE/ [place]/ SMA dissection/ nor abruption Will continue to monitor closely Repeat labs in am All questions were answered. Results & Data Vital Signs (Past 12 Hours) Vital Signs Temp Pulse Resp BP Pulse Ox O2 Del Method 07/17/23 00:41 36.5 C 18 07/17/23 00:40 62 118/59 L 07/17/23 00:00 70 16 121/74 97 07/16/23 23:59 61 20 132/76 99 07/16/23 23:00 67 14 132/74 99 07/16/23 22:30 62 18 120/70 97 07/16/23 22:00 65 14 129/74 97 07/16/23 21:30 63 14 122/73 96 07/16/23 20:30 66 20 126/73 99 07/16/23 20:29 77 07/16/23 20:01 76 17 117/74 98 07/16/23 19:44 66 20 134/72 99 07/16/23 17:01 87 16 149/96 H 99 07/16/23 16:37 79 07/16/23 16:31 79 19 114/79 100 07/16/23 15:40 36.0 C L 80 20 135/82 99 Room Air
[2023-07-17 01:19] LABS: Appearance Urine Clear (Clear); Bilirubin Urine Negative (Negative); Blood Urine Negative (Negative); Color Urine Yellow; Glucose Urine UA Negative (Negative); Ketones Urine Negative (Negative); Leukocyte Esterase Urine Negative (Negative); Nitrite Urine Negative (Negative); Protein Urine Negative (Negative); Specific Gravity Urine 1.014 (1.000-1.030); Urobilinogen Urine Negative (Negative); pH Urine 6.5 (4.5-7.5)
[2023-07-17] MEDS: PIPERACILLIN/TAZOBACTAM 4.5 GM in DEXTROSE 5% MINI-B 100 ML IV SCH (04:30)
[2023-07-17 06:32] LABS: Basophils # (auto) 0.06 K/uL (0.00-0.20); Basophils % (auto) 0.4 %; Eosinophils # (auto) 0.05 K/uL (0.00-0.50); Eosinophils % (auto) 0.4 %; Hematocrit (blood only) 35.3 % (37.0-47.0); Hemoglobin 12.4 g/dl (12.0-16.0); Immature Granulocytes # (auto) 0.16 K/uL (0.01-0.20); Immature Granulocytes % (auto) 1.2 %; Lymphocytes # (auto) 1.76 K/uL (1.20-3.40); Lymphocytes % (auto) 12.8 %; Mean Corpuscular Hemoglobin 31.6 pg (25.0-34.0); Mean Corpuscular Hgb Conc 35.1 g/dL (32.0-36.0); Mean Corpuscular Volume 90.1 fL (80.0-100.0); Monocytes # (auto) 1.26 K/uL (0.11-0.59); Monocytes % (auto) 9.1 %; Neutrophils % (auto) 76.1 %; Platelet Count 175 K/uL (130-400); RDW Coefficient of Variation 13.2 % (11.5-14.5); RDW Standard Deviation 42.5 fL (36.4-46.3); Red Blood Count 3.92 M/uL (4.20-5.40); White Blood Count 13.79 K/ul (4.8-10.8)
[2023-07-17 06:45] LABS: Albumin Globulin Ratio 1.2 (0.9-2); Albumin Level 3.1 gm/dl (3.4-5.0); BUN Creatinine Ratio 11.7 (10-20); Bilirubin,Total 0.5 mg/dl (0.2-1.0); Calcium 8.5 mg/dl (8.6-10.3); Creatinine Clr Calc Pharmacy 131.4 ml/min; Est GFR (African American) 138.8 ml/min; Est GFR (Non-African American) 119.8 ml/min; Globulin 2.5 gm/dl (2.5-4.0); Magnesium 1.8 mg/dl (1.7-2.4); Potassium 3.7 mmol/L (3.5-5.1); Total Protein 5.6 gm/dl (6.0-8.3)
--- NOTE | 2023-07-17 07:07 | Obstetrical Progress Note ---
Date of Service July 17, 2023 Assessment & Plan Admission and Anticipated Discharge Date Admission Date: July 16, 2023 Subjective Patient is sitting up and talking to her comfortably No complaints No ctxs/ LOF/VB +FM FHR had been Categ I Fourche has been registering irregular contractions but she does not feel them She feels dry, has been NPO, IV fluids have been stopped due to ZOsyn taking 4 hours to infuse VSS Afebrile H&H stable LFT's improved as below Coags pending Awaiting G surgery input Continue to monitor closely I will sign out to Dr Herrera, OB coming in Lab Results 07/17/23 07/17/23 Range/Units 01:07 06:07 WBC 13.79 H (4.8-10.8) K/ul RBC 3.92 L (4.20-5.40) M/uL Hgb 12.4 (12.0-16.0) g/dl Hct 35.3 L (37.0-47.0) % MCV 90.1 (80.0-100.0) fL MCH 31.6 (25.0-34.0) pg MCHC 35.1 (32.0-36.0) g/dL RDW Std Deviation 42.5 (36.4-46.3) fL RDW Coeff of Manny 13.2 (11.5-14.5) % Plt Count 175 (130-400) K/uL MPV 12.0 (9.4-12.4) fL Immature Gran % (Auto) 1.2 % Neut % (Auto) 76.1 % Lymph % (Auto) 12.8 % [place] % (Auto) 9.1 % Eos % (Auto) 0.4 % Baso % (Auto) 0.4 % Neut # (Auto) 10.50 H (1.40-6.50) K/uL Lymph # (Auto) 1.76 (1.20-3.40) K/uL [place] # (Auto) 1.26 H (0.11-0.59) K/uL Eos # (Auto) 0.05 (0.00-0.50) K/uL Baso # (Auto) 0.06 (0.00-0.20) K/uL Immature Gran # (Auto) 0.16 (0.01-0.20) K/uL Sodium 137 (136-145) mmol/L Potassium 3.7 (3.5-5.1) mmol/L Chloride 107 (98-107) mmol/L Carbon Dioxide 22 (21-32) mmol/L Anion Gap 8 (3-11) BUN 7 (6-23) mg/dl Creatinine 0.60 (0.6-1.2) mg/dl Est Cr Clr Drug Dosing 131.4 ml/min Est GFR ( Amer) 138.8 ml/min Est GFR (Non-Af Amer) 119.8 ml/min BUN/Creatinine Ratio 11.7 (10-20) Glucose 85 (70-99(Fasting)) mg/dl Calcium 8.5 L (8.6-10.3) mg/dl Magnesium 1.8 (1.7-2.4) mg/dl Total Bilirubin 0.5 (0.2-1.0) mg/dl AST 53 H (13-39) U/L ALT 102 H (7-52) U/L Alkaline Phosphatase 110 H (34-104) U/L Total Protein 5.6 L (6.0-8.3) gm/dl Albumin 3.1 L (3.4-5.0) gm/dl Globulin 2.5 (2.5-4.0) gm/dl Albumin/Globulin Ratio 1.2 (0.9-2) Urine Color Yellow Urine Appearance Clear (Clear) Urine pH 6.5 (4.5-7.5) Ur Specific [place] 1.014 (1.000-1.030) Urine Protein Negative (Negative) Urine Glucose (UA) Negative (Negative) Urine Ketones Negative (Negative) Urine Blood Negative (Negative) Urine Nitrite Negative (Negative) Urine Bilirubin Negative (Negative) Urine Urobilinogen Negative (Negative) Ur Leukocyte Esterase Negative (Negative) Results & Data Vital Signs (Past 12 Hours) Vital Signs Temp Pulse Resp BP Pulse Ox 07/17/23 03:54 36.9 C 69 18 101/54 L 07/17/23 00:41 36.5 C 18 07/17/23 00:40 62 118/59 L 07/17/23 00:00 70 16 121/74 97 07/16/23 23:59 61 20 132/76 99 07/16/23 23:00 67 14 132/74 99 07/16/23 22:30 62 18 120/70 97 07/16/23 22:00 65 14 129/74 97 07/16/23 21:30 63 14 122/73 96 07/16/23 20:30 66 20 126/73 99 07/16/23 20:29 77 07/16/23 20:01 76 17 117/74 98 07/16/23 19:44 66 20 134/72 99
[2023-07-17 07:20] LABS: INR 0.9 (0.9-1.1); Partial Thromboplastin Ratio 0.9; Partial Thromboplastin Time 23 Seconds (21-31); Prothrombin Time 9.9 Seconds (9.0-12.0)
[2023-07-17 07:30] LABS: Fibrinogen 387 mg/dl (184-400)
[2023-07-17] MEDS: PRENATAL VITAMIN 1 TAB PO SCH (08:07)
--- NOTE | 2023-07-17 08:17 | Surgery Progress Note ---
Date of Service July 17, 2023 Assessment & Plan (1) Cholelithiasis affecting in third trimester, antepartum: Plan: Patient is without abdominal pain at this point and feels back to her baseline Abdominal exam is completely benign no tenderness palpation in the right upper quadrant No plans for cholecystectomy at this time, will initiate diet if she tolerates this she can be discharged She should follow-up with general surgery after she delivers, to discuss elective cholecystectomy Surgery will sign off at this time, please call with any questions or concerns Admission and Anticipated Discharge Date Admission Date: July 16, 2023 Subjective Pt seen and examined. She is feeling much better without pain this morning. No fevers. No N/V. Review of Systems Review of Systems: All systems reviewed & are unremarkable except as noted in HPI & below Constitutional: no fever and no chills Cardiovascular: no chest pain Gastrointestinal: no abdominal pain, no nausea and no vomiting Genitourinary: no dysuria Physical Exam Constitutional: WD/WN, vitals as above Eyes: + anicteric sclerae ENMT: Ears: no hearing impairment and no external ear abnormality No sublingual jaundice noted Neck: trachea midline Respiratory: normal respiratory effort, lungs clear to auscultation Cardiovascular: Rate/Rhythm: regular rate and regular rhythm Gastrointestinal (Abdomen): Inspection/Auscultation: + abdomen abnormal to inspection and abdomen not distended Percussion/Palpation: abdomen soft; abdomen nontender and no guarding Negative Aj's Musculoskeletal: No calf tenderness Skin: no rashes Neurologic: moves all extremities Psychiatric: A+Ox3, euthymic affect Results & Data Vital Signs (Past 12 Hours) Vital Signs Temp Pulse Resp BP Pulse Ox 07/17/23 07:10 36.6 C 18 07/17/23 07:10 64 113/57 L 07/17/23 03:54 36.9 C 69 18 101/54 L 07/17/23 00:41 36.5 C 18 07/17/23 00:40 62 118/59 L 07/17/23 00:00 70 16 121/74 97 07/16/23 23:59 61 20 132/76 99 07/16/23 23:00 67 14 132/74 99 07/16/23 22:30 62 18 120/70 97 07/16/23 22:00 65 14 129/74 97 07/16/23 21:30 63 14 122/73 96 07/16/23 20:30 66 20 126/73 99 07/16/23 20:29 77 PG Care Time/CCT Total # of Minutes Spent Total Time Spent with Patient: Total time spent is greater than 50% in coordination of care (as documented) at patient's floor/unit and/or counseling patient: Coding Level of Care Code 17263 SUB INP/OBS CARE Diagnoses Cholelithiasis affecting in third trimester, antepartum O26.613; K80.20
--- NOTE | 2023-07-17 12:20 | Progress Note ---
Date of Service July 17, 2023 Assessment & Plan (1) Cholelithiasis affecting in third trimester, antepartum: Plan: Pt discussed with Dr Nobles at sign out this AM cholelithiasis Surg. on consult Pt feels much better this AM FHR; CAT1 Discussed induction after 39 weeks- Pt and spouse have several questions about induction and Pitocin use. Admission and Anticipated Discharge Date Admission Date: July 16, 2023 Results & Data Vital Signs (Past 12 Hours) Vital Signs Temp Pulse Resp BP 07/17/23 12:07 68 107/60 07/17/23 07:10 36.6 C 18 07/17/23 07:10 64 113/57 L 07/17/23 03:54 36.9 C 69 18 101/54 L 07/17/23 00:41 36.5 C 07/17/23 00:40 62 118/59 L
--- OUTSIDE RECORDS SUMMARY | 2023-07-18 00:33 | External Medical Summary | Summary of Care ---
Author Name Unknown Organization [facility] Address [address] [facility] [place] [address] Phone [phone] Care Team Providers Care Anesthesiologists' Assistant Name Role Phone Americo Jaimes DO Primary Care Provider [phone] Encounter Details Date Type Department Care Team (Late st Contact Info) Description 07/16/2023 Result Scan Unspecified Department <No scans attached> Allergies Active Allergy Reactions Criticality Noted Date Comments Covid-19 (Mrna) Vaccine Other (Please comment) Low 03/26/2020 Patient was dizzy and lightheaded. 2cs dose pfizer Miconazole 12/28/2021 Itching burning documented as of this encounter (statuses as of 07/17/2023) Medications Medication Sig Dispensed Refills Start Date End Date Status hydrOXYzine HCl 10 MG Oral Tablet (Atarax)Indication s:Anxiety attack Take 1 Tablet by mouth every 6 hours as needed for Anxiety. 40 Tablet 5 08/21/2022 Active Additional Information Patient not taking.Reported on 01/29/2023 [place]-3 1000 MG Oral Capsule Take by mouth. Active Nystatin-Triamcino lone 150818-9.1 UNIT/GM-% External Cream (Mycolog) Apply topically to affected area 2 times a day for 2 weeks 30 g 1 09/04/2022 Active Additional Information Patient not taking.Reported on 01/29/2023 Complete Oral Capsule Therapy Pack Take by mouth. Active Aspirin 81 MG Oral Capsule Take by mouth. Active Breast PumpIndications:35 weeks gestation of For mother. 1 Each 07/06/2023 Active Breast Pump Dispense double electric breast pump. Dx:Z39.1 1 Each 07/13/2023 Active documented as of this encounter (statuses as of 07/17/2023) Active Problems Problem Noted Date Diagnosed Date Carrier of group B Streptococcus 07/17/2023 Encounter for supervision of normal first in third trimester 07/13/2023 Situational anxiety 09/04/2022 Small fiber polyneuropathy 05/30/2022 Allergic rhinitis 05/19/2021 Mild tricuspid regurgitation 03/24/2020 Heterozygous factor V Leiden mutation 09/29/2019 Overview: Ask a doc to MFM: Recommendations: Patients with heterozygous factor V Leiden mutation and no history of VTE have 0.5% to 3.1% risk for developing a VTE during . For these patients we do not recommend anticoagulation therapy during the antepartum stage of . Prophylactic anticoagulation therapy should be considered in the stage if the patient has additional risk factors (first-degree relative with a history of thrombotic event, obesity, prolonged immobility, or delivery). Please do the following: please schedule for MFM consult (not Ultrasound) if you would like us to have this conversation with her Postinflammatory hypopigmentation 08/06/2013 Estimated Date of Delivery Comme nts Yes 08/03/2023 Based on last me nstrual period of 10/27/2022 documented as of this encounter (statuses as of 07/17/2023) Resolved Problems Problem Noted Date Diagnosed Date Resolved Date Paresthesias 06/20/2021 09/04/2022 Pityriasis rosea 07/10/2013 09/04/2022 Primary hypercoagulable state 05/17/2007 06/18/2017 ADVANCE DIRECTIVE INFORMATION 10/31/2005 09/04/2022 Overview: Pt does not have an advanced directive. Advanced directive brochure given to pt's mother. Routine child health exam 09/17/2001 documented as of this encounter (statuses as of 07/17/2023) Immunizations Name Administration Dates Next Due COVID-19 mRNA, LNP-s, No Pre serve, 2-Dose Series ([employer]) 03/26/2020,03/05/2020 HEP A - Hepatitis A (Adult > 18 yrs) 01/30/2012 HPV Vaccine, 4-Valent 04/16/2008,08/16/2007,05/21 Meningococcal Conjugate Vacc ine (Menactra/Menveo) 06/11/2007 PPD 10/15/2013,03/10/2010 Seasonal Influenza, Split, I IV3, With Preserve, Inj 11/19/2008,01/04/2006 TDAP (age 11 and older)(Adacel) 06/11/2007 documented as of this encounter Social History Tobacco Use Types Packs/Day Years Used Date Smoking Tobacco: Former Cigarettes 0 02/19/2005 - 02/19/2006 Smokeless Tobacco: Never Comments:No passive smoke ex posure Alcohol Use Standard Drinks/Week Comments Not Currently 0 (1 standard drink = 0.6 oz pur e alcohol) rare PHQ-2 Answer Date Recorded PHQ-2 Score 0 12/27/2017 Hunger Vital Sign Answer Date Recorded Within the past 12 months, y ou worried that your food would run out before you got the money to buy more. Never true 06/25/19 24 Within the past 12 months, t he food you bought just didn't last and you didn't have money to get more. Never true 06/25/2023 [place] Depression Scale Answer Date Recorded [place] Depression Scale Total 5 06/25/2023 The thought of harming myself has occurred to me . Never 06/25/2023 Estimated Date of Delivery Comme nts Yes 08/03/2023 Based on last me nstrual period of 10/27/2022 Sex and Gender Information Value Date Recorded Sex Assigned at Female 06/25/2023 8:50 AM EDT Gender Identity Female 06/25/2023 8:50 AM EDT Sexual Orientation Straight 06/25/2023 8: 50 AM EDT Job Start Date Occupation Industry Not on file Not on file Not on file documented as of this encounter Plan of Treatment Upcoming Encounters Date Type Department Care Team (Late st Contact Info) Description 07/19/2023 9:45 AM EDT Office Visit Gynecology/Obstetrics [facility] [address] [place] [id number] BackJuliana osuna CRNP [address] [place] [id number] 07/27/2023 11:15 AM EDT Office Visit Gynecology/Obstetrics [facility] [address] [place] [id number] Saleem Herrera MD [address] [place] [id number] 08/03/2023 8:30 AM EDT Office Visit Gynecology/Obstetrics [facility] [address] [place] [id number] Juliana Lauren CRNP [address] [place] [id number] Health Maintenance Due Date Last Done Comments DTaP,Tdap,and Td Vaccines (7 - Td or Tdap) 06/10/2017 06/11/2007, 09/08/2002, 09/05/1994, Additional history exists Depression Screening 07/19/2018 07/19/2017 HPV/Co-Test 08/20/2019 COVID-19 Vaccine ( season) 2022 03/26/2020, 03/05/2020 Cervical Cancer Screening 05/21/2023 Pap Smear 05/21/2023 05/20/2020, 0708/2013, 05/04/2009 Influenza Vaccine (FLU shot) (Season Ended) 2023 11/19/2008, 01/04/2006, 12/30/2004 Hepatitis B Completed 09/26/1996, 04/20, 03/10/1996 MENINGOCOCCAL (MENACTRA/MENVEO) Completed 06/11/2007 GARDASIL-HPV IMMUNIZATION SERIES Completed 04/16/2008, 08/16/2007, 06/11/2007 Pneumococcal Vaccine: Pediatrics (0 to 5 Years) and At-Risk Patients (6 to 64 Years) Aged Out No longer eligible based on patient's age to complete this topic documented as of this encounter Medical Devices Not on filedocumented as of this encounter Procedures Procedure Name Priority Date/Time Associated Diagnosis Comments OUTSIDE LAB RESULTS 07/16/2023 documented in this encounter Results * OUTSIDE LAB RESULTS (07/16/2023) 07/16/2023 No Physician Data Unknown LABORATORY documented in this encounter Care Teams Anesthesiologists' Assistant Relationship Specialty Start Date End Date Americo Jaimes DO [address] [place] [address] PCP - General Family Medicine 07/01/13 documented as of this encounter
== END 2023-07-17 12:45 | disposition home or self-care (01) ==
LOC: ED 15:38 → 4S1 15:38

== ENCOUNTER 2023-07-30 23:00 | Inpatient (IN) ==
[2023-07-31] MEDS ORDERED: CALCIUM CARBONATE 500 MG CHEWABLE TAB PO PRN (00:19)
[2023-07-31] MEDS ORDERED: LIDOCAINE 1% LOCAL 20 ML VIAL INFIL PRN (00:19)
[2023-07-31] MEDS ORDERED: SODIUM CHLORIDE 0.9% 250 ML IV PRN (00:32)
--- NOTE | 2023-07-31 00:32 | History & Physical Report ---
Date of Service July 31, 2023 Assessment & Plan (1) Spontaneous rupture of amniotic membranes: Plan: 31-year-old G1, P0 at 39 weeks and 4 days of gestation presenting with spontaneous rupture of membranes and regular contractions, Vital signs stable afebrile, heart rate category 1, Early labor with unfavorable cervix, history of cholelithiasis with elevated liver enzymes about 2 weeks ago, symptoms resolved with dietary change Patient denies any intervention, denies any pain medication nor epidural and desires ambulation intermittent monitoring, GBS positive, Plan to admit, monitor, labs, repeat liver enzymes, ambulate, pain management with IV Stadol and or epidural if patient changes her mind, Understands if contractions spaced out and no change in cervix, then we will recommend oxytocin augmentation, all questions were answered. (2) Uterine contractions at greater than 20 weeks of gestation: (3) Cholelithiasis affecting in third trimester, antepartum: (4) Factor 5 Leiden mutation, heterozygous: History of Present Illness Primary Care Provider: Americo Jaimes DO pt is a 32 yo G1, [id number] at 39 weeks and 4 days of gestation who started to leak amniotic fluids at 1915 p.m. yesterday which continued over time. She started to have contractions about half an hour later and they were irregular every 10 to 15 minutes initially and they became more closer, regular and painful for the last 1 to 2 hours. They are every 2 to 4 minutes, lasting about 50 to 60 seconds. She rates the pain 7 out of 10 but declines any pain medication nor epidural. Her has been complicated by, 1. GBS positive, 2. Episode of a acute chest pain/abdominal pain on July 15, admitted to OB service, cardiac and pulmonary workup was negative, incidental finding of cholelithiasis and elevated liver enzymes. Surgery consultation was obtained and did not recommend acute surgery since her symptoms improved. 3. Factor V Leyden mutation, no history of DVTs/PE herself neither in close family members, 4. Allergies Allergy/AdvReac Type Severity Reaction Status Date / Time COVID-19 vacc, bv (Orig, Allergy Unknown faint Verified 07/16/23 16:18 Omicron BA.4/5) (Pfizer) [From Pfizer COVID Bival(12y up)(PF)] miconazole [From Monistat 7] AdvReac Severe internal Verified 07/16/23 16:18 vag pain, swelling Home Medications Medication Instructions Recorded Confirmed Type vits,calcium 21-iron fum 1 tab PO UD 07/16/23 07/30/23 History 14 mg iron-folic acid 400 mcg tablet ( Complete) Patient History Medical History Mild tricuspid regurgitation Varicella vaccination Family history of ovarian cyst History of coagulation defect Factor 5 Leiden mutation, heterozygous Surgical History S/P wisdom tooth extraction Family History Grandmother (Maternal) Factor 5 Leiden mutation, heterozygous Breast cancer Grandmother (Paternal) Clotting disorder Father Hypertension Liver disease Dyslipidemia Aunt Factor 5 Leiden mutation, heterozygous maternal Denies family history of Ovarian cancer Colorectal cancer Social History Smoking Status: Never smoker Do You Dip or Chew Tobacco: No; Hx Alcohol Use: No Hx Substance Use: No Preferred Language: Uzbek Communication Ability: Effective Tool Storage Attendant Required: No Beliefs That Will Affect Care: None marital status: marital status details: Dereje Mercedes([phone] Current Living Situation: Spouse Current Living Situation Comment: lives with spouse, cat-spouse changing litter current occupational status: employed 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 Other Information That Helps Us Care for You: No Feels Safe at Home: Yes Assistive Devices: None SERVICE WRITER History No history of STDs, no history of chlamydia, gonorrhea, herpes Review of Systems as per Subjective / HPI Physical Exam Constitutional: WD/WN, vitals as above well developed, well nourished and + acute distress ( seems uncomfortable with contractions) Gastrointestinal (Abdomen): normal bowel sounds, soft, nontender, no hepatosplenomegaly Genitourinary: normal external appearance OB Exam Abdomen: + vertex ( confirmed with bedside ultrasound, unable to tolerate ultrasound due to p) Manual OB Exam: + cervical dilation 1 cm, + cervical effacement 20% and + station -2 OB Exam Monitor Tracing: + external uterine monitor used and + category I cervical exam is by her nurse, grossly ruptured nitrazine positive. Bedside ultrasound revealed vertex, placenta anterior, patient could not tolerate longer ultrasound exam for EFW due to pain Results & Data Vital Signs (Past 12 Hours) Vital Signs Temp Pulse Resp BP 07/30/23 23:42 62 113/71 07/30/23 23:40 36.4 C L 16 Code Status & VTE Plan VTE Prophylaxis Plan VTE Prophylaxis will be ordered: Yes
[2023-07-31] MEDS ORDERED: BUTORPHANOL TARTRATE 2 MG/ML VIAL IV PRN (00:40)
[2023-07-31] MEDS: PENICILLIN GK 6 MU in DEXTROSE 5% 250 ML IV STA (00:44)
[2023-07-31 01:10] LABS: Albumin Globulin Ratio 1.3 (0.9-2); Albumin Level 3.5 gm/dl (3.4-5.0); BUN Creatinine Ratio 10.8 (10-20); Bilirubin,Total 0.5 mg/dl (0.2-1.0); Calcium 8.9 mg/dl (8.6-10.3); Creatinine Clr Calc Pharmacy 106.8 ml/min; Est GFR (African American) 123.4 ml/min; Est GFR (Non-African American) 106.4 ml/min; Globulin 2.8 gm/dl (2.5-4.0); Potassium 3.7 mmol/L (3.5-5.1); Total Protein 6.3 gm/dl (6.0-8.3)
[2023-07-31 01:16] LABS: Hematocrit (blood only) 35.6 % (37.0-47.0); Hemoglobin 12.6 g/dl (12.0-16.0); Mean Corpuscular Hemoglobin 31.3 pg (25.0-34.0); Mean Corpuscular Hgb Conc 35.4 g/dL (32.0-36.0); Mean Corpuscular Volume 88.6 fL (80.0-100.0); Mean Platelet Volume 12.6 fL (9.4-12.4); Platelet Count 174 K/uL (130-400); RDW Coefficient of Variation 12.5 % (11.5-14.5); RDW Standard Deviation 40.6 fL (36.4-46.3); Red Blood Count 4.02 M/uL (4.20-5.40)
[2023-07-31] MEDS: PENICILLIN GK 3 MU in DEXTROSE 5% 100 ML IV PRN (04:31)
[2023-07-31] MEDS: LACTATED RINGER'S 1,000 ML IV PRN (07:15)
--- NOTE | 2023-07-31 07:25 | Anesthesiology Consultation ---
Date of Service July 31, 2023 Assessment & Plan Chart Review Chart Review: Acceptable Risk for Surgery and Patient NOT seen in Pre Admission Testing Consults Requested none ASA ASA2 Proposed Anesthesia Anesthesia Type: Labor Epidural and CSE Risk / Benefits Reviewed With: PT / POA / Parent / Guardian, Accepts Plan and Informed Consent Obtained History Height/Weight Height: 5 ft 4 in Weight: 74.3 kg Allergies Allergy/AdvReac Type Severity Reaction Status Date / Time COVID-19 vacc, bv (Orig, Allergy Unknown faint Verified 07/16/23 16:18 Omicron BA.4/5) (Pfizer) [From Pfizer COVID Bival(12y up)(PF)] miconazole [From Monistat 7] AdvReac Severe internal Verified 07/16/23 16:18 vag pain, swelling Medications Home Medications Medication Instructions Recorded Confirmed Last Taken vits,calcium 21-iron fum 1 tab PO UD 07/16/23 07/30/23 1 Day Ago 14 mg iron-folic acid 400 mcg ~07/29/23 tablet ( Complete) Active Medications Generic Name Dose Route Start Last Admin Trade Name Freq PRN Reason Stop Dose Admin Penicillin G Potassium 3 mu/ 106 mls @ 100 mls/hr 07/31/23 03:19 07/31/23 05:35 Dextrose IV 08/10/23 03:18 Infused Q4H PRN Infusion GBS(+) Until Delivery NPO Date Last Intake of Fluids: 07/31/23 Time Last Intake of Fluids: 05:30 Date Last Intake of Solids: 07/30/23 Time Last Intake of Solids: 20:00 Past Medical History Medical History Mild tricuspid regurgitation Varicella vaccination Family history of ovarian cyst History of coagulation defect Factor 5 Leiden mutation, heterozygous Exercise / Class Metabolic Activity II 4-5 Yardwork/Stairs/Walk up hill Past Family History Family History Grandmother (Maternal) Factor 5 Leiden mutation, heterozygous Breast cancer Grandmother (Paternal) Clotting disorder Father Hypertension Liver disease Dyslipidemia Aunt Factor 5 Leiden mutation, heterozygous maternal Denies family history of Ovarian cancer Colorectal cancer Past Surgical History Surgical History S/P wisdom tooth extraction Past Anesthesia History No Hx of Anesthesia Complications and No Family Hx of Anesthesia Complications History of PONV No Hx of PONV and No Hx of Motion Sickness Social History Smoking Status: Never smoker Do You Dip or Chew Tobacco: No Hx Alcohol Use: No Hx Substance Use: No Physical Exam Vital Signs Last Vital Signs Temp 36.7 C 07/31/23 06:30 Pulse 77 07/31/23 07:13 Resp 16 07/31/23 06:30 BP 121/65 07/31/23 07:13 Constitutional + obese ENMT Mouth: + small oral opening; no dentition abnormality Thyromental Distance: < 3.5 Finger Breadths Mallampati Class: II Neck normal visual inspection and trachea midline; neck extension not limited Respiratory normal respiratory effort Auscultation: lungs clear to auscultation bilaterally Cardiovascular Rate/Rhythm: regular rate and regular rhythm Heart Sounds: no murmur Vessels: no carotid bruit Musculoskeletal Spine: lumbar spine normal to inspection; normal cervical ROM Extremities: extremities normal to inspection; full ROM of extremities Neurologic moves all extremities Motor/Sensory: no sensory deficit Psychiatric Orientation: alert and oriented x 3 Testing Laboratory Results 07/31/23 00:40 07/31/23 00:40 Blood Type A Positive 07/31/23 00:40 Antibody Screen NEGATIVE 07/31/23 00:40
[2023-07-31] MEDS ORDERED: diphenhydrAMINE 50 MG/ML VIAL IV PRN (07:45)
[2023-07-31] MEDS ORDERED: NALBUPHINE HCL 5 MG in SYRINGE 0 ML IV PRN (07:45)
[2023-07-31] MEDS ORDERED: NALOXONE HCL 0.4 MG/1 ML VIAL/CARP IV PRN (07:45)
[2023-07-31] MEDS ORDERED: NALOXONE HCL 1 MG in SODIUM CHLORIDE 0.9% 1,000 ML IV PRN (07:45)
[2023-07-31] MEDS ORDERED: BUPIVACAINE 0.25% PF 30 ML VIAL EPI PRN (07:45)
[2023-07-31] MEDS ORDERED: PROMETHAZINE HCL 6.25 MG in SODIUM CHLORIDE 0.9% 50 ML IV PRN (07:45)
[2023-07-31] MEDS ORDERED: LIDOCAINE 2% MPF LOCAL 5 ML VIAL EPI PRN (07:45)
[2023-07-31] MEDS ORDERED: ONDANSETRON INJ 2 MG/ML 2 ML VIAL IV PRN (07:45)
[2023-07-31] MEDS ORDERED: ePHEDrine sulfate 50 MG/ML AMP IV PRN (07:45)
[2023-07-31] MEDS ORDERED: SODIUM CHLORIDE 0.9% PF INJ 10 ML VIAL EPI PRN (07:45)
[2023-07-31] MEDS ORDERED: ROPIVACAINE 0.5% PF 5 MG/ML 20 ML VIAL EPI PRN (07:45)
[2023-07-31] MEDS: fentANYL 2 MCG/ML BUPIVacaine 0.125%-NSS 100ML BAG EPI PRN (08:00)
[2023-07-31] MEDS: fentaNYL citrate PF 100 MCG/2 ML VIAL EPI PRN (08:11)
[2023-07-31] MEDS: LIDOCAINE 2%/EPINEPHRINE 1:200,000 20 ML PF EPI STA (08:11)
--- NOTE | 2023-07-31 08:12 | Obstetrical Progress Note ---
Date of Service July 31, 2023 Assessment & Plan Admission and Anticipated Discharge Date Admission Date: July 31, 2023 Subjective Patient decided to get epidural. Right after epidural was completed, FHR was down to 70's, maternal? Patient was placed on left lateral side and it came up to her normal baseline to 130's, VE: 8cm/ 80%/ 0, jenkins catheter was placed FHR 130's, moderate variability, no more decels Continue to monitor closely Results & Data Vital Signs (Past 12 Hours) Vital Signs Temp Pulse Resp BP Pulse Ox 07/31/23 08:06 63 100 07/31/23 08:03 64 94/76 L 07/31/23 08:01 100 07/31/23 08:01 67 07/31/23 08:01 65 88/52 L 07/31/23 07:56 69 92/55 L 100 07/31/23 07:55 118 H 92/51 L 07/31/23 07:52 67 94/45 L 07/31/23 07:51 66 98 07/31/23 07:50 77 91 07/31/23 07:46 63 100 07/31/23 07:44 76 104/63 94 07/31/23 07:41 85 95 07/31/23 07:36 83 98 07/31/23 07:31 79 98 07/31/23 07:26 90 97 07/31/23 07:13 77 121/65 07/31/23 06:30 16 07/31/23 06:30 36.7 C 07/31/23 04:33 78 129/65 07/31/23 04:31 16 07/31/23 04:31 36.8 C 07/31/23 02:18 16 07/31/23 02:18 36.6 C 16 07/30/23 23:42 62 113/71 07/30/23 23:40 36.4 C L 16
--- NOTE | 2023-07-31 09:24 | Obstetrical Progress Note ---
Date of Service July 31, 2023 Assessment & Plan (1) Spontaneous rupture of amniotic membranes: Plan: Pt reviewed with Dr Nobles and Nurse Met pt and spouse Pt resting comfortably on her left side FHR; CAT1 Ctx; 3-4min Admission and Anticipated Discharge Date Admission Date: July 31, 2023 Results & Data Vital Signs (Past 12 Hours) Vital Signs Temp Pulse Resp BP Pulse Ox 07/31/23 09:17 113 H 115/73 07/31/23 09:16 67 99 07/31/23 09:12 68 84 L 07/31/23 09:11 68 89 L 07/31/23 09:06 72 99 07/31/23 09:01 62 100 07/31/23 08:59 63 102/55 L 07/31/23 08:56 64 100 07/31/23 08:51 66 100 07/31/23 08:46 100 07/31/23 08:46 61 07/31/23 08:46 61 99/52 L 07/31/23 08:41 61 100 07/31/23 08:36 63 100 07/31/23 08:31 61 100 07/31/23 08:30 62 18 81/46 L 07/31/23 08:26 66 100 07/31/23 08:21 61 100 07/31/23 08:16 75 100 07/31/23 08:14 68 93/52 L 07/31/23 08:11 73 100 07/31/23 08:06 63 100 07/31/23 08:03 64 94/76 L 07/31/23 08:01 100 07/31/23 08:01 67 07/31/23 08:01 65 88/52 L 07/31/23 07:59 18 07/31/23 07:59 18 07/31/23 07:57 18 07/31/23 07:57 18 07/31/23 07:56 69 92/55 L 100 07/31/23 07:55 118 H 18 92/51 L 07/31/23 07:53 18 07/31/23 07:53 18 07/31/23 07:52 67 94/45 L 07/31/23 07:51 66 18 98 07/31/23 07:50 77 91 07/31/23 07:49 18 07/31/23 07:49 18 07/31/23 07:47 18 07/31/23 07:47 18 07/31/23 07:46 63 100 07/31/23 07:44 76 104/63 94 07/31/23 07:41 85 95 07/31/23 07:36 83 98 07/31/23 07:31 79 98 07/31/23 07:26 90 97 07/31/23 07:13 77 121/65 07/31/23 06:30 16 07/31/23 06:30 36.7 C 16 07/31/23 04:33 78 129/65 07/31/23 04:31 16 07/31/23 04:31 36.8 C 16 07/31/23 02:18 16 07/31/23 02:18 36.6 C 16 07/30/23 23:42 62 113/71 07/30/23 23:40 36.4 C L 16
--- OUTSIDE RECORDS SUMMARY | 2023-07-31 11:04 | External Medical Summary | Summary of Care ---
Author Name Unknown Organization [facility] Address [address] [facility] [place] [address] Phone [phone] Care Team Providers Care Hot Mill Tin Roller Name Role Phone Americo Jaimes DO Primary Care Provider +1 [phone] Reason for Visit * Reason Comments Non Stress Test Encounter Details Date Type Department Care Team (Latest Contact Info) Description 07/27/2023 10:45 AM EDT Office Visit Gynecology/Obstetric s Gabriele'roma Jones [address] [place] [address] Saleem Herrera MD [address] [place] [address] Robert Non Stress Tests Pam [address] [place] [address] Cholecystitis*; Heterozygous factor V Leiden mutation (HCC); Normal in third trimester; Carrier of group B Streptococcus Allergies Active Allergy Reactions Criticality Noted Date Comments Covid-19 (Mrna) Vaccine Other (Please comment) Low 03/26/2020 Patient was dizzy and lightheaded. 2cs dose pfizer Miconazole 12/28/2021 Itching burning documented as of this encounter (statuses as of 07/27/2023) Medications Medication Sig Dispensed Refills Start Date End Date Status hydrOXYzine HCl 10 MG Oral Tablet (Atarax)Indication s:Anxiety attack Take 1 Tablet by mouth every 6 hours as needed for Anxiety. 40 Tablet 5 08/21/2022 Active Additional Information Patient not taking.Reported on 01/29/2023 [place]-3 1000 MG Oral Capsule Take by mouth. Active Nystatin-Triamcino lone 883159-4.1 UNIT/GM-% External Cream (Mycolog) Apply topically to [...] as of this encounter (statuses as of 07/27/2023) Active Problems Problem Noted Date Diagnosed Date Carrier of group B Streptococcus 07/17/2023 Normal 07/13/2023 Situational anxiety 09/04/2022 Small fiber polyneuropathy [...] as of this encounter (statuses as of 07/27/2023) Resolved Problems Problem Noted Date Diagnosed Date Resolved Date Cholestasis during in third trimester 07/19/2023 07/19/2023 Paresthesias 06/20/2021 09/04/2022 Pityriasis rosea 07/10/2013 09/04/2022 Primary hypercoagulable state 05/17/2007 06/18/2017 ADVANCE DIRECTIVE INFORMATION 10/31/2005 09/04/2022 Overview: Pt does not have an advanced directive. Advanced directive brochure given to pt's mother. Routine child health exam 09/17/2001 documented as of this encounter (statuses as of 07/27/2023) Immunizations Name Administration Dates Next Due COVID-19 mRNA, LNP-s, No Pre serve, 2-Dose Series ([employer]) 03/26/2020,03/05/2020 HEP A - Hepatitis A (Adult > 18 yrs) 01/30/2012 HPV Vaccine, 4-Valent 04/16/2008,08/16/2007,05/21 Meningococcal Conjugate Vacc ine (Menactra/Menveo) 06/11/2007 PPD 10/15/2013,03/10/2010 Seasonal Influenza, Split, I IV3, With Preserve, Inj 11/19/2008,01/04/2006 TDAP, Age 7 and older, IM (Adacel) 06/11/2007 documented as of this encounter Social [...] money to get more. Never true 06/25/2023 [place] Depression Scale Answer Date Recorded [place] Depression Scale Total 5 06/25/2023 The thought [...] on file documented as of this encounter Last Filed Vital Signs Vital Sign Reading Time Taken Comments Blood Pressure 112/74 07/27/2023 10:40 AM EDT Pulse - - Temperature - - Respiratory Rate - - Oxygen Saturation - - Inhaled Oxygen Concentration - - Weight 74.3 kg (163 lb 12.8 oz) 024 10:40 AM EDT Height 162.6 cm (5' 4") 07/27/2023 10:4 0 AM EDT Body Mass Index 28.12 07/27/2023 10:40 AM EDT documented in this encounter Progress Notes * Saleem Herrera MD - 07/27/2023 11:39 AM EDT Pt doing well S/P cholecystitis Seen at [facility] I offered pt induction after 39 weeks in order to prevent another attack, but she tells me she has consulted with other providers and they do not find that necessary She therefore to proceed to 42 weeks NST today; ASSESSMENT assessment with Non-stress Test completed on 07/27/2023 at 39 weeks gestation for indication ofCholecystitis heart baseline: 140 bpm Variability: Moderate Decelerations: absent Accelerations: present Contractions: None NST start time: 10;46AM NST stop time: 11.12Am NST strip reviewed, interpreted, and approved by OB provider, . NST strip stored in clinic storage file documented in this encounter Nursing Notes * Annamaria Castillo LPN - 07/27/2023 12:29 PM EDT Nst, hakeem Fox sto schedule glh IOL 41 weeks and a few days. documented in this encounter Plan of Treatment Upcoming Encounters Date Type Department Care Team (Late st Contact Info) Description 08/03/2023 8:30 AM EDT Office Visit Gynecology/Obstetrics Aakash Jones [address] [place] [address] BackerJuliana CRNP [address] [place] [address] Scheduled Orders Name Type Priority Associated Diagnoses Orde r Schedule NON-STRESS TEST Procedures Routine Cholecystitis Ordered: 07/27/2023 Health Maintenance Due Date Last Done Comments DTaP,Tdap,and Td Vaccines (7 - Td or Tdap) 06/10/2017 06/11/2007, 09/08/2002, 09/05/1994, Additional history exists Depression Screening 07/19/2018 07/19/2017 HPV/Co-Test 08/20/2019 COVID-19 Vaccine ( season) 2022 03/26/2020, 03/05/2020 Cervical Cancer Screening 05/21/2023 Pap Smear 05/21/2023 05/20/2020, 07/08/2013, 05/04/2009 Influenza Vaccine (FLU shot) (Season Ended) 2023 11/19/2008, 01/04/2006, 12/30/2004 Hepatitis B Completed 09/26/1996, 04/20, 03/10/1996 MENINGOCOCCAL (MENACTRA/MENVEO) Completed 06/11/2007, 06/11/2007 GARDASIL-HPV IMMUNIZATION SERIES Completed 04/16/2008, 08/16/2007, 06/11/2007 Pneumococcal Vaccine: Pediatrics (0 to 5 Years) and At-Risk Patients (6 to 64 Years) Aged Out No longer eligible based on patient's age to complete this topic documented as of this encounter Medical Devices Not on filedocumented as of this encounter Procedures Procedure Name Priority Date/Time Associated Diagnosis Comments COMPREHENSIVE METABOLIC PANEL STAT 07/27/2023 11:48 AM EDT Heterozygous factor V Leiden mutation (HCC) Cholecystitis documented in this encounter Results * (ABNORMAL) COMPREHENSIVE METABOLIC PANEL (07/27/2023 11:48 AM EDT) Pathologist [facility] BUN 8 6 - 20 mg/dL 07/27/2023 3:12 PM EDT LABORATORY [facility] 57-10 Creatinine 0.8 0.5 - 1.0 mg/dL 07/27/2023 3:12 PM EDT LAB[facility]ATORY [facility] 57-10 Estimated Glomerular Filtration Rate >90 >=60 mL/min 07/27/2023 3:12 PM EDT LAB[facility]ATORY [facility] 57-10 Comment:eGFR is calculated b ased on the CKD-EPI 2020 equation Sodium 134(L) 135 - 146 mmol/L 07/27/2023 3:12 PM EDT LAB[facility]ORY [facility] 57-10 Potassium 4.2 3.5 - 5.1 mmol/L 07/27/2023 3:12 PM EDT LAB[facility]ORY [facility] 57-10 Chloride 101 98 - 107 mmol/L 07/27/2023 3:12 PM EDT LAB[facility]ATORY [facility] 57-10 CO2 20(L) 22 - 32 mmol/L 07/27/2023 3:12 PM EDT LAB[facility]ATORY [facility] 57-10 Anion Gap 13 7 - 15 mmol/L 07/27/2023 3:12 PM EDT LAB[facility]ORY [facility] 57-10 Glucose 82 70 - 120 mg/dL 07/27/2023 3:12 PM EDT LAB[facility]ORY [facility] 57-10 Albumin 3.5(L) 3.8 - 5.0 g/dL 07/27/2023 3:12 PM EDT LAB[facility]ORY [facility] 57-10 AST 36(H) 10 - 35 U/L 07/27/2023 3:12 PM EDT LAB[facility]ORY [facility] 57-10 Alkaline Phosphatase 174(H) 35 - 130 U/L 07/27/2023 3:12 PM EDT LAB[facility]ORY [facility] 57-10 Bilirubin, Total 0.3 <=1.2 mg/dL 07/27/2023 3:12 PM EDT LAB[facility]ORY [facility] 57-10 Calcium 8.9 8.4 - 10.2 mg/dL 07/27/2023 3:12 PM EDT LAB[facility]ORY [facility] 57-10 Protein 5.9(L) 6.0 - 8.3 g/dL 07/27/2023 3:12 PM EDT LAB[facility]ATORY [facility] 57-10 ALT 67(H) 10 - 35 U/L 07/27/2023 3:12 PM EDT LABORATORY [facility] 57-10 Blood Venous blood specimen / Unknown Venipuncture / Unknown 07/27/2023 11:48 AM EDT 07/27/2023 11:48 AM EDT Saleem Herrera MD LAB BLOOD ORDERABLES Performing Organization Address City/State/[facility] Co de Phone Number LABORATORY [facility] 57-[address] [facility] [place] [address] documented in this encounter Visit Diagnoses Diagnosis Cholecystitis- Primary Cholecystitis, unspecified Heterozygous factor V Leiden mutation (HCC) Primary hypercoagulable state Normal in third trimester Carrier of group B Streptococcus Carrier or suspected carrier of Group B streptococcus documented in this encounter Care Teams Hot Mill Tin Roller Relationship Specialty Start Date End Date Americo Jaimes DO [address] [address] PCP - General Family Medicine 07/01/13 documented as of this encounter
--- OUTSIDE RECORDS SUMMARY | 2023-07-31 11:04 | External Medical Summary | Summary of Care ---
Author Name Unknown Organization [facility] Address [address] [facility] [place] [address] Phone [phone] Care Team Providers Care Physiotherapy Aide Name Role Phone Americo Jaimes DO Primary Care Provider [phone] Reason for Visit * Reason Onset Date Comments Test Results 07/27/2023 Encounter Details Date Type Department Care Team (Late st Contact Info) Description 07/27/2023 Telephone Gynecology/Obstetrics [facility] [address] [place] [address] Saleem Herrera MD [address] [place] [id number] Test Results Allergies Active Allergy Reactions Criticality Noted Date [...] Additional Information Patient not taking.Reported on 01/29/2023 [place]-3 1000 MG Oral Capsule Take by mouth. Active Nystatin-Triamcino lone 019353-1.1 UNIT/GM-% External Cream (Mycolog) Apply topically to [...] mutation 09/29/2019 Overview: Ask a doc to [facility]: Recommendations: Patients with heterozygous factor V Leiden [...] mRNA, LNP-s, No Pre serve, 2-Dose Series (Pfizer) 03/26/2020,03/05/2020 DTWP - Dipth/Tet/Whole Cell Pertussis ,02/22/1990,1989,10/19 DTaP Dipth/Tet/Acell Pertussis (Infanrix), Peds 09/05/1994 HEP A - Hepatitis A (Adult > 18 yrs) 01/30/2012 HPV Vaccine, 4-Valent 04/16/2008,08/16/2007,05/21 Haemophilius B (HIB), unspecified 1990,07/14/1990,05/03/1990,02/22 Hepatitis B Vaccine 09/26/1996,05/09/1996,1996 MMR - Measles/Mumps/Rubella Vaccine 10/18/1998,1 Meningococcal Conjugate Vacc ine (Menactra/Menveo) 06/11/2007 OPV - Polio Virus Vaccine (Oral) 995,11/29/1990,1989,10/19 PPD 10/15/2013,03/10/2010,09/05/1994 Seasonal Influenza, Split, I IV3, With Preserve, Inj 11/19/2008,01/04/2006,12/30/2004 TD - Tetanus/Diptheria (ADULT) 09/08/2002 TDAP, Age 7 and older, IM (Adacel) 06/11/2007 Varicella Vaccine (Chicken Pox) 09/05/1994 documented as of this encounter Social History [...] money to get more. Never true 06/25/2023 [place] Depression Scale Answer Date Recorded [place] Depression Scale Total 5 06/25/2023 The thought [...] on file documented as of this encounter Miscellaneous Notes * Telephone Encounter - Annamaria Castillo LPN - 07/27/2023 3:46 PM EDT Reviewed cmp from todays visit with dr herrera. Levels improved from l+d visit. No change in plan at this time as pt in declining 39wk IOL documented in this encounter Plan of Treatment Upcoming Encounters Date Type Department Care Team (Late st Contact Info) Description 08/03/2023 8:30 AM EDT Office Visit Gynecology/Obstetrics [facility] [address] [place] [address] BackerJuliana CRNP [address] [place] [address] Health Maintenance Due Date Last Done Comments DTaP,Tdap,and Td Vaccines (7 - Td or Tdap) 06/10/2017 06/11/2007, 09/08/2002, 09/05/1994, Additional history exists Depression Screening 07/19/2018 07/19/2017 HPV/Co-Test 08/20/2019 COVID-19 Vaccine (3 - 2023-24 season) 2022 03/26/2020, 03/05/2020 Cervical Cancer Screening 05/21/2023 Pap Smear 05/21/2023 05/20/2020, 07/0 08/2013, 05/04/2009 Influenza Vaccine (FLU shot) (Season Ended) [...] Not on filedocumented as of this encounter Care Teams Physiotherapy Aide Relationship Specialty Start Date End Date Americo Jaimes DO [address] [address] PCP - General Family Medicine 07/01/13 documented as of this encounter
--- OUTSIDE RECORDS SUMMARY | 2023-07-31 11:04 | External Medical Summary | Summary of Care ---
Author Name Unknown Organization [facility] Address [address] [facility] [place] [address] Phone [phone] Care Team Providers Care Museum Assistant Name Role Phone Americo Jaimes DO Primary Care Provider [phone] Reason for Visit * Reason Comments Non Stress Test Encounter Details Date Type Department Care Team (Latest Contact Info) Description 07/27/2023 10:45 AM EDT Office Visit Gynecology/Obstetric s Gabriele'roma Jones [address] [place] [address] Saleem Herrera MD [address] [place] [address] Robert Non Stress Tests Pam [address] [place] [address] Cholecystitis*; Heterozygous factor V Leiden mutation (HCC); [...] Additional Information Patient not taking.Reported on 01/29/2023 [place]-3 1000 MG Oral Capsule Take by mouth. Active Nystatin-Triamcino lone 443765-6.1 UNIT/GM-% External Cream (Mycolog) Apply topically to [...] mRNA, LNP-s, No Pre serve, 2-Dose Series ([employer]) 03/26/2020,03/05/2020 HEP A - Hepatitis A (Adult [...] money to get more. Never true 06/25/2023 [place] Depression Scale Answer Date Recorded [place] Depression Scale Total 5 06/25/2023 The thought [...] Pt doing well S/P cholecystitis Seen at [facility] I offered pt induction after 39 weeks [...] Gynecology/Obstetrics Aakash Jones [address] [place] [address] BackerJuliana CRNP [address] [place] [address] Scheduled Orders Name Type Priority Associated Diagnoses [...] METABOLIC PANEL (07/27/2023 11:48 AM EDT) Pathologist [facility] BUN 8 6 - 20 mg/dL 07/27/2023 3:12 PM EDT [facility] 57-10 Creatinine 0.8 0.5 - 1.0 [...] 35 U/L 07/27/2023 3:12 PM EDT LAB[facility]ATORY [facility] 57-10 Blood Venous blood specimen / Unknown Venipuncture / Unknown 07/27/2023 11:48 AM EDT 07/27/2023 11:48 AM EDT Saleem Herrera MD LAB BLOOD ORDERABLES Performing Organization Address City/State/[facility] Co de Phone Number LAB[facility]ATORY [facility] [facility] [place] [address] documented in this encounter Visit Diagnoses Diagnosis Cholecystitis- Primary Cholecystitis, unspecified Heterozygous factor V Leiden mutation (HCC) Primary hypercoagulable state Normal in third trimester Carrier of group B Streptococcus Carrier or suspected carrier of Group B streptococcus documented in this encounter Care Teams Museum Assistant Relationship Specialty Start Date End Date Americo Jaimes DO [address] [address] PCP - General Family Medicine 07/01/13 documented as of this encounter
--- OUTSIDE RECORDS SUMMARY | 2023-07-31 11:05 | External Medical Summary | Summary of Care ---
Author Name Unknown Organization [facility] Address [address] [facility] [place] [address] Phone [phone] Care Team Providers Care Convenience Recycle Center Tech Name Role Phone Americo Jaimes DO Primary Care Provider [phone] Reason for Visit * Reason Comments Return Visit Non Stress Test Encounter Details Date Type Department Care Team (Late st Contact Info) Description 07/19/2023 9:30 AM EDT Office Visit Gynecology/Obstetri cs Gabriele'roma Jones [address] [facility] [place] [address] Juliana Lauren CRNP [address] [place] [address] Robert Non Stress Tests Pam [address] [place] [address] Normal in third trimester*; Heterozygous factor V Leiden mutation (HCC); Carrier of group B Streptococcus Allergies Active Allergy Reactions Criticality Noted Date Comments Covid-19 (Mrna) Vaccine Other (Please comment) Low 03/26/2020 Patient was dizzy and lightheaded. 2cs dose pfizer Miconazole 12/28/2021 Itching burning documented as of this encounter (statuses as of 07/19/2023) Medications Medication Sig Dispensed Refills Start Date End Date Status hydrOXYzine HCl 10 MG Oral Tablet (Atarax)Indication s:Anxiety attack Take 1 Tablet by mouth every 6 hours as needed for Anxiety. 40 Tablet 5 08/21/2022 Active Additional Information Patient not taking.Reported on 01/29/2023 [place]-3 1000 MG Oral Capsule Take by mouth. Active Nystatin-Triamcino lone 744437-5.1 UNIT/GM-% External Cream (Mycolog) Apply topically to [...] as of this encounter (statuses as of 07/19/2023) Active Problems Problem Noted Date Diagnosed Date [...] as of this encounter (statuses as of 07/19/2023) Resolved Problems Problem Noted Date Diagnosed Date Resolved Date Cholestasis during in third trimester 07/19/2023 07/19/2023 Paresthesias 06/20/2021 09/04/2022 Pityriasis rosea 07/10/2013 09/04/2022 Primary hypercoagulable state 05/17/2007 06/18/2017 ADVANCE DIRECTIVE INFORMATION 10/31/2005 09/04/2022 Overview: Pt does not have an advanced directive. Advanced directive brochure given to pt's mother. Routine child health exam 09/17/2001 documented as of this encounter (statuses as of 07/19/2023) Immunizations Name Administration Dates Next Due COVID-19 mRNA, LNP-s, No Pre serve, 2-Dose Series ([employer]) 03/26/2020,03/05/2020 HEP A - Hepatitis A (Adult [...] money to get more. Never true 06/25/2023 [place] Depression Scale Answer Date Recorded [place] Depression Scale Total 5 06/25/2023 The thought [...] Sign Reading Time Taken Comments Blood Pressure 100/60 07/19/2023 9:33 AM EDT Pulse - - Temperature - - Respiratory Rate - - Oxygen Saturation - - Inhaled Oxygen Concentration - - Weight 74.4 kg (164 lb) 07/19/2023 9:33 AM EDT Height - - Body Mass Index 28.15 07/13/2023 8:29 AM EDT documented in this encounter Progress Notes * Juliana Lauren CRNP - 07/19/2023 9:31 AM EDT 37w6d Good movement. No ctx, leaking, bleeding. She was seen at [facility] earlier this week with severe chest pain. She was evaluated for labor on L&D, and sent to the ER. Chest CT and CT angiography were unremarkable; abdominal CT showed gallbladder wall thickening and inflammation. Labs showed normal H/H; mild transaminitis with AST 66 and ALT 113 on 07/15. Negative UA and normal renal function. RUQ ultrasound showed equivocal cholecystitis. No evidence for placental abruption. She met with general surgery; per their notes, there was discussion of inducing labor to permit for a cholecystectomy. She was hospitalized overnight for observation. Notes and labs from 07/16 not available to review attime of her visit today; nursing to call [facility] to obtain these. Through [place] Text with Dr Nobles and discussion with patient and her , LFTs were trending down and pain resolved at time of discharge on 07/16. Per nursing message on 07/16, there was concern for ICP; pt was advised to have weekly NSTs with visit and IOL at [facility] was scheduled for 07/30. However, in discussing this with Dr Nobles today, there were no bile acids drawn and ICP was not considered as a diagnosis during her hospitalization. Per Dr Nobles, the early induction was advised so that her gallbladder could be surgically removed; however,the plan changed to expectant management since her pain resolve and labs were improving. Patient denies ever having any pruritus. We discussed this at length. There is no evidence of ICP, HELLP, or pre- eclampsia at this time. Will obtain her labs from day of discharge. NST is reactive today, and patient is asymptomatic. Will plan to repeat LFTs at her visit next week. At this point, do not see a medical indication for early in duction of labor. Advised that we do recommend delivery by 42 weeks. Reviewed [facility] and signs to report right away. She and her are comfortable with this plan. BYRON Pro ASSESSMENT assessment with Non-stress Test completed on 07/19/2023 at 37.6 weeks gestation heart baseline: 140 bpm Variability: Moderate Decelerations: absent Accelerations: present Contractions: irregular, pt denies feeling any NST start time: 925 NST stop time: 957 NST strip reviewed, interpreted, and approved by OB provider, BYRON Pro . NST strip stored in clinic storage file documented in this encounter Plan of Treatment Upcoming Encounters Date Type Department Care Team (Late st Contact Info) Description 07/27/2023 10:45 AM EDT Office Visit Gynecology/Obstetrics Aakash Jones [address] [place] [address] Saleem Herrera MD [address] [place] [address] Dalia Jones Stress Tests Pam [address] [place] [address] 08/03/2023 8:30 AM EDT Office Visit Gynecology/Obstetrics Aakash Jones [address] [place] [address] Juliana Lauren CRNP [address] [place] [address] Health Maintenance Due Date Last Done Comments [...] Not on filedocumented as of this encounter Visit Diagnoses Diagnosis Normal in third trimester- Primary Heterozygous factor V Leiden mutation (HCC) Primary hypercoagulable state Carrier of group B Streptococcus Carrier or suspected carrier of Group B streptococcus documented in this encounter Care Teams Convenience Recycle Center Tech Relationship Specialty Start Date End Date Americo Jaimes DO [address] [address] PCP - General Family Medicine 07/01/13 documented as of this encounter
--- OUTSIDE RECORDS SUMMARY | 2023-07-31 11:05 | External Medical Summary | Summary of Care ---
Author Name Unknown Organization [facility] Address [address] [facility] [place] [address] Phone [phone] Care Team Providers Care Artist Mannequin Coloring Name Role Phone Americo Jaimes DO Primary Care Provider [phone] Encounter Details Date Type Department Care Team (Late st Contact Info) Description 07/27/2023 Telephone Gynecology/Obstetrics [facility] [address] [place] [address] Saleem Herrera MD [address] [place] [address] Allergies Active Allergy Reactions Criticality Noted Date [...] Additional Information Patient not taking.Reported on 01/29/2023 [place]-3 1000 MG Oral Capsule Take by mouth. Active Nystatin-Triamcino lone 339967-3.1 UNIT/GM-% External Cream (Mycolog) Apply topically to [...] mutation 09/29/2019 Overview: Ask a doc to [facility]: Recommendations: Patients with heterozygous factor V Leiden [...] No Pre serve, 2-Dose Series (Pfizer) 03/26/2020,03/05/2020 HEP A - Hepatitis A (Adult [...] money to get more. Never true 06/25/2023 [place] Depression Scale Answer Date Recorded [place] Depression Scale Total 5 06/25/2023 The thought [...] Office Visit Gynecology/Obstetrics Aakash Jones [address] [place] [address] Backer, BYRON Van [address] [place] [address] Health Maintenance Due Date Last Done Comments [...] filedocumented as of this encounter Care Teams Artist Mannequin Coloring Relationship Specialty Start Date End Date Americo Jaimes DO [address] [facility] [place] [address] PCP - General Family Medicine 07/01/13 documented as of this encounter
--- OUTSIDE RECORDS SUMMARY | 2023-07-31 11:05 | External Medical Summary | Summary of Care ---
Author Name Unknown Organization [facility] Address [address] [facility] [place] [address] Phone [phone] Care Team Providers Care Security Systems Integrator Name Role Phone Americo Jaimes DO Primary Care Provider [phone] Encounter Details Date Type Department Care Team (Late st Contact Info) Description 07/26/2023 Telephone Gynecology/Obstetrics [facility] [address] [place] [address] Juliana Lauren CRNP [address] [place] [address] Allergies Active Allergy Reactions Criticality Noted Date Comments Covid-19 (Mrna) Vaccine Other (Please comment) Low 03/26/2020 Patient was dizzy and lightheaded. 2cs dose pfizer Miconazole 12/28/2021 Itching burning documented as of this encounter (statuses as of 07/26/2023) Medications Medication Sig Dispensed Refills Start Date End Date Status hydrOXYzine HCl 10 MG Oral Tablet (Atarax)Indication s:Anxiety attack Take 1 Tablet by mouth every 6 hours as needed for Anxiety. 40 Tablet 5 08/21/2022 Active Additional Information Patient not taking.Reported on 01/29/2023 [place]-3 1000 MG Oral Capsule Take by mouth. Active Nystatin-Triamcino lone 677868-0.1 UNIT/GM-% External Cream (Mycolog) Apply topically to [...] as of this encounter (statuses as of 07/26/2023) Active Problems Problem Noted Date Diagnosed Date [...] as of this encounter (statuses as of 07/26/2023) Resolved Problems Problem Noted Date Diagnosed Date Resolved Date Cholestasis during in third trimester 07/19/2023 07/19/2023 Paresthesias 06/20/2021 09/04/2022 Pityriasis rosea 07/10/2013 09/04/2022 Primary hypercoagulable state 05/17/2007 06/18/2017 ADVANCE DIRECTIVE INFORMATION 10/31/2005 09/04/2022 Overview: Pt does not have an advanced directive. Advanced directive brochure given to pt's mother. Routine child health exam 09/17/2001 documented as of this encounter (statuses as of 07/26/2023) Immunizations Name Administration Dates Next Due COVID-19 [...] money to get more. Never true 06/25/2023 [place] Depression Scale Answer Date Recorded [place] Depression Scale Total 5 06/25/2023 The thought [...] encounter Miscellaneous Notes * Telephone Encounter - Rose Richard LPN - 07/26/2023 8:35 AM EDT L&D called saying they can move pts IOL from 07/30 to 07/26. I called pt and she is saying she wastold a IOL was not needed now. Pt is seeing Dr herrera tomorrow for appointment I told pt to further discuss with him in regards to IOL if needed. Pt also wanted a [facility] delivery and pt is scheduled at [facility] at her appt tomorrow we need to confirm everything documented in this encounter Plan of Treatment Upcoming Encounters Date Type Department Care Team (Late st Contact Info) Description 07/27/2023 10:45 AM EDT Office Visit Gynecology/Obstetrics Aakash Jones [address] [place] [address] Saleem Herrera MD [address] [place] [address] Dalia Jones Stress Tests [facility] [address] [place] [address] 08/03/2023 8:30 AM EDT Office Visit Gynecology/Obstetrics Aakash Jones [address] [place] [address] Juliana Lauren CRNP [address] [place] [address] Health Maintenance Due Date Last Done Comments [...] filedocumented as of this encounter Care Teams Security Systems Integrator Relationship Specialty Start Date End Date Americo Jaimes DO [address] [place] [address] PCP - General Family Medicine 07/01/13 documented as of this encounter
--- OUTSIDE RECORDS SUMMARY | 2023-07-31 11:05 | External Medical Summary | Summary of Care ---
Author Name Unknown Organization [facility] Address [address] [facility] [place] [address] Phone [phone] Care Team Providers Care Airline Mechanic Name Role Phone Americo Jaimes DO Primary Care Provider [phone] Reason for Visit * Reason Onset Date Comments Advice 07/19/2023 Encounter Details Date Type Department Care Team (Late st Contact Info) Description 07/19/2023 Telephone Gynecology/Obstetrics [facility] [address] [place] [address] Juliana Lauren CRNP [address] [place] [place] [address] Advice Allergies Active Allergy Reactions Criticality Noted Date [...] Additional Information Patient not taking.Reported on 01/29/2023 [place]-3 1000 MG Oral Capsule Take by mouth. Active Nystatin-Triamcino lone 833241-3.1 UNIT/GM-% External Cream (Mycolog) Apply topically to [...] mutation 09/29/2019 Overview: Ask a doc to [facility]: Recommendations: Patients with heterozygous factor V Leiden [...] money to get more. Never true 06/25/2023 [place] Depression Scale Answer Date Recorded [place] Depression Scale Total 5 06/25/2023 The thought [...] encounter Miscellaneous Notes * Telephone Encounter - Dara Campbell LPN - 07/19/2023 11:55 AM EDT Pt's calling into office to have induction date changed from [facility] on 07/30 to [place] on 08/02/23. Discussed briefly with Dr. Roman and Kristi Lopez, RN. At the advice of Dr. Roman, pt should schedule a CRISTINA visit in the [place] office, preferably with an MD per Kristi Lopez. Then the determination can be made regarding an induction on 08/02/23. Per Pt's , she had had elevated liver enzymes and was told by one provider to schedule induction for 07/30 out of caution, while another provider did not feel that it was necessary after repeat labs returned normal. Pt has a CRISTINA appt scheduled at [facility] next Sunday and will keep this appt and do repeat labs and will go from there regarding scheduling an appt here in [place] and changing induction date. documented in this encounter Plan of Treatment Upcoming Encounters Date Type Department Care Team (Late st Contact Info) Description 07/27/2023 10:45 AM EDT Office Visit Gynecology/Obstetrics [facility] [address] [place] [address] Saleem Herrera MD [address] [place] [address] [facility] [address] [place] [address] 08/03/2023 8:30 AM EDT Office Visit Gynecology/Obstetrics [facility] [address] [place] [address] Juliana Lauren CRNP [address] [place] [place] [address] Health Maintenance Due Date Last Done Comments [...] filedocumented as of this encounter Care Teams Airline Mechanic Relationship Specialty Start Date End Date Americo Jaimes DO [address] [place] [address] PCP - General Family Medicine 07/01/13 documented as of this encounter
--- OUTSIDE RECORDS SUMMARY | 2023-07-31 11:05 | External Medical Summary ---
Author Name Unknown Address Unknown Organization [facility] [address] [place] [address] Laboratory Report Ordering Provider Test Date Status YRN ALEXIS 07/27/2023 11:48:44 Final Observation Date Value Abnormality Reference (Units ) Status BUN 07/27/2023 11:48:44 8 6-20 (mg/dL) Final Creatinine 07/27/2023 11:48:44 0.8 0.5-1.0 (mg/dL) Final Glomerular filtration rate/1.73 sq M.predicted [Volume Rate/Area] in Serum, Plasma or Blood by Creatinine-based formula (CKD-EPI) 07/27/2023 11:48:44 >90 >=60 (mL/min) Final eGFR is calculated based on the CKD-EPI 2020 equation Sodium 07/27/2023 11:48:44 134 Below low normal 135 -146 (mmol/L) Final Potassium 07/27/2023 11:48:44 4.2 3.5-5.1 (m mol/L) Final Cl 07/27/2023 11:48:44 101 98-107 (mm ol/L) Final CO2 07/27/2023 11:48:44 20 Below low normal 22- 32 (mmol/L) Final Anion gap 07/27/2023 11:48:44 13 7-15 (mmol /L) Final Glucose 07/27/2023 11:48:44 82 70-120 (mg /dL) Final Albumin 07/27/2023 11:48:44 3.5 Below low normal 3.8 -5.0 (g/dL) Final AST (Aspartate aminotransferase) 07/27/2023 11:48:44 36 Above high normal 10-35 (U/L) Final Alk Phos 07/27/2023 11:48:44 174 Above high normal 35 -130 (U/L) Final Bilirubin, Total 07/27/2023 11:48:44 0.3 <=1 .2 (mg/dL) Final Calcium 07/27/2023 11:48:44 8.9 8.4-10.2 ( mg/dL) Final Protein 07/27/2023 11:48:44 5.9 Below low normal 6.0 -8.3 (g/dL) Final ALT (Alanine aminotransferase) 07/27/2023 11:48:44 67 Above high normal 10-35 (U/L) Final Performing Location [facility] [place] [address] [place] [address]
--- OUTSIDE RECORDS SUMMARY | 2023-07-31 11:05 | External Medical Summary | Summary of Care ---
Author Name Unknown Organization [facility] Address [address] [facility] [place] [address] Phone [phone] Care Team Providers Care Bleach Boiler Packer Name Role Phone Americo Jaimes DO Primary Care Provider [phone] Encounter Details Date Type Department Care Team (Late st Contact Info) Description 07/17/2023 Telephone Gynecology/Obstetrics [facility] [address] [place] [address] Saleem Herrera MD [address] [place] [address] Allergies Active Allergy Reactions Criticality Noted Date Comments Covid-19 (Mrna) Vaccine Other (Please comment) Low 03/26/2020 Patient was dizzy and lightheaded. 2cs dose pfizer Miconazole 12/28/2021 Itching burning documented as of this encounter (statuses as of 07/18/2023) Medications Medication Sig Dispensed Refills Start Date End Date Status hydrOXYzine HCl 10 MG Oral Tablet (Atarax)Indication s:Anxiety attack Take 1 Tablet by mouth every 6 hours as needed for Anxiety. 40 Tablet 5 08/21/2022 Active Additional Information Patient not taking.Reported on 01/29/2023 [place]-3 1000 MG Oral Capsule Take by mouth. Active Nystatin-Triamcino lone 995662-7.1 UNIT/GM-% External Cream (Mycolog) Apply topically to [...] as of this encounter (statuses as of 07/18/2023) Active Problems Problem Noted Date Diagnosed Date [...] as of this encounter (statuses as of 07/18/2023) Resolved Problems Problem Noted Date Diagnosed Date Resolved Date Paresthesias 06/20/2021 09/04/2022 Pityriasis rosea 07/10/2013 09/04/2022 Primary hypercoagulable state 05/17/2007 06/18/2017 ADVANCE DIRECTIVE INFORMATION 10/31/2005 09/04/2022 Overview: Pt does not have an advanced directive. Advanced directive brochure given to pt's mother. Routine child health exam 09/17/2001 documented as of this encounter (statuses as of 07/18/2023) Immunizations Name Administration Dates Next Due COVID-19 [...] money to get more. Never true 06/25/2023 [place] Depression Scale Answer Date Recorded [place] Depression Scale Total 5 06/25/2023 The thought [...] encounter Miscellaneous Notes * Telephone Encounter - Rafia Henry OSA - 07/18/2023 10:22 AM EDT Called patient and confirmed she is alright with coming 30 minutes earlier to her next 2 appointments to accommodate for NST. Patient was agreeable and schedule was updated. * Telephone Encounter - Thao Hardy LPN - 07/17/2023 12:59 PM EDT Patient discharged from L&D 07/16, dx cholestasis. Per Dr. Herrera needs weekly NSTs with visits. IOL scheduled at [place] 07/30 but patient is considering delivery at [facility]. Will let us know. Please help pt schedule NSTs with upcoming visits. documented in this encounter Plan of Treatment Upcoming Encounters Date Type Department Care Team (Late st Contact Info) Description 07/19/2023 9:30 AM EDT Office Visit Gynecology/Obstetrics Aakash Jones [address] [place] [address] BackerJuliana CRNP [address] [place] [address] Robert Non Stress Tests Pam [address] [place] [address] 07/27/2023 10:45 AM EDT Office Visit Gynecology/Obstetrics Aakash Jones [address] [place] [address] Saleem Herrera MD [address] [place] [address] Robert, Non Stress Tests Pam [address] [place] [address] 08/03/2023 8:30 AM EDT Office Visit Gynecology/Obstetrics Aakash Jones [address] [place] [address] Backer, BYRON Van [address] [place] [address] Health Maintenance Due Date Last Done Comments DTaP,Tdap,and Td Vaccines (7 - Td or Tdap) 06/10/2017 06/11/2007, 09/08/2002, 09/05/1994, Additional history exists Depression Screening 07/19/2018 07/19/2017 HPV/Co-Test 08/20/2019 COVID-19 Vaccine ( season) 2022 03/26/2020, 03/05/2020 Cervical Cancer Screening 05/21/2023 Pap Smear 05/21/2023 05/20/2020, 08/2013, 05/04/2009 Influenza Vaccine (FLU shot) (Season [...] filedocumented as of this encounter Care Teams Bleach Boiler Packer Relationship Specialty Start Date End Date Americo Jaimes DO [address] [place] [address] [place] [address] PCP - General Family Medicine 07/01/13 documented as of this encounter
[2023-07-31] MEDS: OXYTOCIN 30 UNITS/NSS 30 UNITS/500 ML BAG IV PRN (11:40)
[2023-07-31] MEDS: SODIUM CHLORIDE 0.9% PF INJ 10 ML VIAL ONE (12:00)
[2023-07-31] MEDS: BUPIVACAINE 0.25% PF 30 ML VIAL EPI STA (12:00)
[2023-07-31] MEDS: BUPIVACAINE 0.25% PF 30 ML VIAL ONE (12:00)
[2023-07-31] MEDS: fentaNYL citrate PF 100 MCG/2 ML VIAL EPI STA (12:00)
[2023-07-31] MEDS: fentaNYL citrate PF 100 MCG/2 ML VIAL ONE (12:00)
[2023-07-31] MEDS: fentANYL 2 MCG/ML BUPIVacaine 0.125%-NSS 100ML BAG ONE (12:00)
[2023-07-31] MEDS: ePHEDrine sulfate 50 MG/ML AMP ONE (12:00)
[2023-07-31] MEDS: LIDOCAINE 2%/EPINEPHRINE 1:200,000 20 ML PF ONE (12:00)
[2023-07-31] MEDS: SODIUM CHLORIDE 0.9% PF INJ 10 ML VIAL EPI STA (12:01)
[2023-07-31] MEDS: miSOPROStoL 200 MCG TAB ONE (12:08)
[2023-07-31] MEDS ORDERED: bisacodyL 10 MG SUPP PR PRN (12:12)
[2023-07-31] MEDS ORDERED: HYDROCORTISONE ACETATE 25 MG SUPP PR PRN (12:12)
[2023-07-31] MEDS ORDERED: OXYTOCIN 30 UNITS/NSS 30 UNITS/500 ML BAG IV PRN (12:12)
--- NOTE | 2023-07-31 12:15 | Delivery Summary ---
Vaginal Delivery Summary Date of Service July 31, 2023 Vaginal Delivery Summary DELIVERY NOTE Patient delivered a live male in left occiput anterior presentation there was no nuchal cord. was delivered and placed on mother's abdomen. Delayed cord clamping was performed. Cord blood is obtained Cord gasses are obtained Meconium is absent Placenta is spontaneously delivered. Placenta appears grossly normal and has 3 vessel cord Inspection of the perineum showed a second-degree midline laceration. Laceration is repaired in layers with 2-0 Vicryl in layers Rectal exam post repair showed good sphincter tone no sutures palpated in the rectum. Quantitative blood loss is 143ml Infants weight and are in the pediatric record Mother and baby are stable in in the recovery
[2023-07-31 12:23] LABS: Base Excess Cord Arterial Bld -6.8 mEq/L (-9-1.8); CO2 Cord Arterial Blood 54 mmHg (39.1-73.5); HCO3 Cord Arterial Blood 22 mmol/L (19.7-28.5); Oxygen Sat Cord Arterial Blood < 60.0 % (<60); PO2 Cord Arterial Blood 20 mmHg (4.1-31.7); pH Cord Arterial Blood 7.21 (7.1-7.38)
[2023-07-31 12:29] LABS: Base Excess Cord Venous Blood -5.7 mEq/L (-7.7-1.9); Cord Venous Blood HCO3 21 mmol/L (18.4-26.8); Cord Venous Blood PCO2 43 mmHg (30.4-57.2); Cord Venous Blood PO2 34 mmHg (14.1-43.3); Cord Venous Blood pH 7.29 (7.20-7.44); O2 Saturation Cord Venous Bld 66.4 % (<68)
[2023-07-31] MEDS: miSOPROStoL 200 MCG TAB PR ONE (13:00)
[2023-07-31] MEDS: DIPHTHER/TETAN/PERTUS Vaccine (Tdap, Adol/Adult) 0.5mL IM ONE (13:00)
[2023-07-31] MEDS: IBUPROFEN 600 MG TAB PO PRN (13:03)
[2023-07-31] MEDS: BENZOCAINE 20% SPRY 85 APPLN/85 GM CAN EXT PRN (13:12)
--- NOTE | 2023-07-31 13:36 | Anesthesia Procedure Note ---
Date of Service July 31, 2023 Anesthesia Post Epidural Note Vital Signs Vital Signs: Temp Pulse Resp BP Pulse Ox 36.9 C 62 18 102/59 L 100 07/31/23 11:35 07/31/23 13:30 07/31/23 13:10 07/31/23 13:30 07/31/23 10:51 Pain Intensity Abdomen: Pain Intensity: 2 Notes Mental Status: alert / awake / arousable Nausea / Vomiting: adequately controlled Pain: adequately controlled Airway Patency, RR, SpO2: stable & adequate BP & HR: stable & adequate Hydration State: stable & adequate Neuraxial Anesthesia: was administered and sensory block is resolving Anesthetic Complications: no major complications apparent Epidural: Removed without complications and With tip intact
[2023-07-31] MEDS: ACETAMINOPHEN 325 MG TAB PO PRN (18:57)
[2023-07-31] MEDS: DOCUSATE SODIUM 100 MG CAP PO SCH (21:11)
[2023-08-01] MEDS: ACETAMINOPHEN 500 MG TAB PO PRN (04:04)
[2023-08-01 07:26] LABS: Hematocrit (blood only) 30.4 % (37.0-47.0); Hemoglobin 10.7 g/dl (12.0-16.0); Mean Corpuscular Hemoglobin 31.1 pg (25.0-34.0); Mean Corpuscular Hgb Conc 35.2 g/dL (32.0-36.0); Mean Corpuscular Volume 88.4 fL (80.0-100.0); Mean Platelet Volume 12.5 fL (9.4-12.4); Platelet Count 155 K/uL (130-400); RDW Standard Deviation 41.7 fL (36.4-46.3); Red Blood Count 3.44 M/uL (4.20-5.40); White Blood Count 10.89 K/ul (4.8-10.8)
[2023-08-01] MEDS: PRENATAL VITAMIN 1 TAB PO SCH (09:16)
--- NOTE | 2023-08-01 10:56 | Obstetrical Progress Note ---
Date of Service August 01, 2023 Subjective Ambulation: ambulating normally Voiding: no voiding problems Passing Gas:: Yes Diet Tolerance:: regular diet Lochia:: Small Feeding Type:: breast feeding Current Pain Level(1-10): 4 (some back pain by coccyx ) Physical Exam Constitutional WD/WN, vitals as above Musculoskeletal Extremities: extremities normal to inspection Skin no rashes, warm and dry Neurologic patellar DTR's 2+ bilat, sensation intact Psychiatric A+Ox3, euthymic affect Genitourinary pain over back near coccyx Results & Data Vital Signs (Past 12 Hours) Vital Signs Temp Pulse Resp BP 08/01/23 09:00 36.7 C 68 20 91/62 L 08/01/23 04:00 36.5 C 71 18 101/62 07/31/23 23:10 36.8 C 64 18 90/52 L Laboratory Results Laboratory Results - last 24 hr 07/31/23 07/31/23 07/31/23 00:40 11:35 11:35 WBC RBC Hgb Hct MCV MCH MCHC RDW Std Deviation RDW Coeff of Manny Plt Count MPV Cord ABG pH 7.21 Cord ABG pCO2 54 Cord ABG pO2 20 Cord ABG HCO3 22 Cord ABG Base Excess -6.8 Cord ABG O2 Sat < 60.0 Cord VBG pH 7.29 Cord VBG pCO2 43 Cord VBG pO2 34 Cord VBG HCO3 21 Cord VBG Base Excess -5.7 Cord VBG O2 Sat 66.4 Blood Gas Comments BOSE BOSE RPR Nonreactive Crossmatch See Detail 08/01/23 07:05 WBC 10.89 H RBC 3.44 L Hgb 10.7 L Hct 30.4 L MCV 88.4 MCH 31.1 MCHC 35.2 RDW Std Deviation 41.7 RDW Coeff of Manny 13.0 Plt Count 155 MPV 12.5 H Cord ABG pH Cord ABG pCO2 Cord ABG pO2 Cord ABG HCO3 Cord ABG Base Excess Cord ABG O2 Sat Cord VBG pH Cord VBG pCO2 Cord VBG pO2 Cord VBG HCO3 Cord VBG Base Excess Cord VBG O2 Sat Blood Gas Comments RPR Crossmatch
[2023-08-01 13:22] LABS: HBSAG NON-REACTIVE (NON-REACTIVE)
[2023-08-02] MEDS: bisacodyL 5 MG TABEC PO SCH (00:16)
[2023-08-02 06:43] LABS: Hematocrit (blood only) 32.3 % (37.0-47.0); Hemoglobin 11.2 g/dl (12.0-16.0)
--- NOTE | 2023-08-02 09:55 | Obstetrical Progress Note ---
Date of Service August 02, 2023 Assessment & Plan Admission and Anticipated Discharge Date Admission Date: July 31, 2023 Subjective Patient is seen and examined. She feels well other than coccygeal pain since delivery. It is getting better over time and motrin is helping. Ambulating without dizziness Voiding without difficulty Tolerating regular diet with out N&V Bleeding is minimal No fever/ chills/ CP/ SOB/ N&V/ Leg pain Breast feeding without problems Vital Signs Temp Pulse Pulse Resp BP BP Pulse Ox 08/02/23 09:36 37.0 C 66 16 116/72 99 08/01/23 23:45 36.5 C 59 L 18 97/62 L 99 08/01/23 20:25 37.0 C 73 16 89/84 L 97 08/01/23 13:50 36.7 C 68 20 111/64 O2 Del Method 08/02/23 09:36 Room Air 08/01/23 23:45 Room Air 08/01/23 20:25 Room Air 08/01/23 13:50 Lab Results 07/31/23 07/31/23 07/31/23 Range/Units 00:40 11:35 11:35 WBC 9.50 (4.8-10.8) K/ul RBC 4.02 L (4.20-5.40) M/uL Hgb 12.6 (12.0-16.0) g/dl Hct 35.6 L (37.0-47.0) % MCV 88.6 (80.0-100.0) fL MCH 31.3 (25.0-34.0) pg MCHC 35.4 (32.0-36.0) g/dL RDW Std Deviation 40.6 (36.4-46.3) fL RDW Coeff of Manny 12.5 (11.5-14.5) % Plt Count 174 (130-400) K/uL MPV 12.6 H (9.4-12.4) fL Cord ABG pH 7.21 (7.1-7.38) Cord ABG pCO2 54 (39.1-73.5) mmHg Cord ABG pO2 20 (4.1-31.7) mmHg Cord ABG HCO3 22 (19.7-28.5) mmol/L Cord ABG Base Excess -6.8 (-9-1.8) mEq/L Cord ABG O2 Sat < 60.0 (<60) % Cord VBG pH 7.29 (7.20-7.44) Cord VBG pCO2 43 (30.4-57.2) mmHg Cord VBG pO2 34 (14.1-43.3) mmHg Cord VBG HCO3 21 (18.4-26.8) mmol/L Cord VBG Base Excess -5.7 (-7.7-1.9) mEq/L Cord VBG O2 Sat 66.4 (<68) % Blood Gas Comments BOSE BOSE Sodium 129 L (136-145) mmol/L Potassium 3.7 (3.5-5.1) mmol/L Chloride 101 (98-107) mmol/L Carbon Dioxide 19 L (21-32) mmol/L Anion Gap 9 (3-11) BUN 8 (6-23) mg/dl Creatinine 0.74 (0.6-1.2) mg/dl Est Cr Clr Drug Dosing 106.8 ml/min Est GFR ( Amer) 123.4 ml/min Est GFR (Non-Af Amer) 106.4 ml/min BUN/Creatinine Ratio 10.8 (10-20) Glucose 83 (70-99(Fasting)) mg/dl Calcium 8.9 (8.6-10.3) mg/dl Total Bilirubin 0.5 (0.2-1.0) mg/dl AST 32 (13-39) U/L ALT 43 (7-52) U/L Alkaline Phosphatase 158 H (34-104) U/L Total Protein 6.3 (6.0-8.3) gm/dl Albumin 3.5 (3.4-5.0) gm/dl Globulin 2.8 (2.5-4.0) gm/dl Albumin/Globulin Ratio 1.3 (0.9-2) RPR Nonreactive (Nonreactive) Hep Bs Antigen NON-REACTIVE (NON-REACTIVE) Hep Bs Ag Confirmation TNP Hepatitis C Ab (EIA) NON-REACTIVE (NON-REACTIVE) Blood Type A Positive Antibody Screen NEGATIVE Crossmatch See Detail 08/01/23 08/02/23 Range/Units 07:05 06:13 WBC 10.89 H (4.8-10.8) K/ul RBC 3.44 L (4.20-5.40) M/uL Hgb 10.7 L 11.2 L (12.0-16.0) g/dl Hct 30.4 L 32.3 L (37.0-47.0) % MCV 88.4 (80.0-100.0) fL MCH 31.1 (25.0-34.0) pg MCHC 35.2 (32.0-36.0) g/dL RDW Std Deviation 41.7 (36.4-46.3) fL RDW Coeff of Manny 13.0 (11.5-14.5) % Plt Count 155 (130-400) K/uL MPV 12.5 H (9.4-12.4) fL Cord ABG pH (7.1-7.38) Cord ABG pCO2 (39.1-73.5) mmHg Cord ABG pO2 (4.1-31.7) mmHg Cord ABG HCO3 (19.7-28.5) mmol/L Cord ABG Base Excess (-9-1.8) mEq/L Cord ABG O2 Sat (<60) % Cord VBG pH (7.20-7.44) Cord VBG pCO2 (30.4-57.2) mmHg Cord VBG pO2 (14.1-43.3) mmHg Cord VBG HCO3 (18.4-26.8) mmol/L Cord VBG Base Excess (-7.7-1.9) mEq/L Cord VBG O2 Sat (<68) % Blood Gas Comments Sodium (136-145) mmol/L Potassium (3.5-5.1) mmol/L Chloride (98-107) mmol/L Carbon Dioxide (21-32) mmol/L Anion Gap (3-11) BUN (6-23) mg/dl Creatinine (0.6-1.2) mg/dl Est Cr Clr Drug Dosing ml/min Est GFR ( Amer) ml/min Est GFR (Non-Af Amer) ml/min BUN/Creatinine Ratio (10-20) Glucose (70-99(Fasting)) mg/dl Calcium (8.6-10.3) mg/dl Total Bilirubin (0.2-1.0) mg/dl AST (13-39) U/L ALT (7-52) U/L Alkaline Phosphatase (34-104) U/L Total Protein (6.0-8.3) gm/dl Albumin (3.4-5.0) gm/dl Globulin (2.5-4.0) gm/dl Albumin/Globulin Ratio (0.9-2) RPR (Nonreactive) Hep Bs Antigen (NON-REACTIVE) Hep Bs Ag Confirmation Hepatitis C Ab (EIA) (NON-REACTIVE) Blood Type Antibody Screen Crossmatch PE: General: Alert, orientedx3, NAD Abd: soft, NT, fundus firm, below Umbilicus Perineum intact, Lochia rubra minimal Ext; NT, no edema AP: 32 yo s/p , ppd# 2 VSS Afebrile doing well Continue routine care Discussed coccyxgeal pain and what to expect All questions were answered D/C home , f/u in office Results & Data Vital Signs (Past 12 Hours) Vital Signs Temp Pulse Resp BP Pulse Ox O2 Del Method 08/01/23 23:45 36.5 C 59 L 18 97/62 L 99 Room Air
[2023-08-02 10:14] VITALS: RESP 16
[2023-08-02 12:23] VITALS: O2SAT 100
[2023-08-02 17:05] VITALS: PULSE 68; TEMP 98.2
[2023-08-02 17:16] VITALS: BP 111/64
== END 2023-08-02 20:02 | disposition home health service (06) | DRG 806 ==
LOC: OPB 23:00 → 4S1 23:00 → 4E2 07-31 15:40